=== PATIENT | male | born 1970 | race Two or more races ===

== ENCOUNTER 2017-09-06 13:12 | Emergency (ER) | payer SELFPAY ==
[2017-09-06 13:44] VITALS: BP 145/98
[2017-09-06] MEDS ORDERED: KETOROLAC TROMETH 60MG/2ML VIAL IM ONE (15:45)
== END 2017-09-06 16:27 | disposition home or self-care (01) ==
LOC: ER 13:12 → EDBD 13:12 → ER 16:27
DX: K40.90 Unilateral inguinal hernia, without obstruction or gangrene, not specified as recurrent (principal)
CPT/HCPCS: 74176; 96372; 99284; J1885

== ENCOUNTER 2022-04-11 10:54 | Emergency (ER) | payer MEDICAID, OTHER ==
[~2022-04-11] VITALS: Ht 170.2 cm; Wt 81.6 kg
[2022-04-11 11:24] LABS: Urine Bacteria NONE SEEN /hpf (None Seen); Urine Blood Negative /uL (Negative); Urine Specific Gravity 1.036 (1.001-1.035); Urine WBC <1 /hpf (0 - 3)
[2022-04-11 11:48] LABS: Basophils # (auto) 0.1 10 ^3/uL (0-0.2); Basophils % (auto) 1.2 % (0.0-2.0); Eosinophils # (auto) 0 10 ^3/uL (0-0.8); Eosinophils % (auto) 0.3 % (0.0-7.0); Hematocrit 42.9 % (41.0-53.0); Hemoglobin 15.1 g/dL (13.5-17.5); Lymphocytes # (auto) 2.9 10 ^3/uL (0.4-5.4); Lymphocytes % (auto) 27.5 % (10.0-50.0); Mean Corpuscular Hemoglobin 31.1 pg (28.0-32.0); Mean Corpuscular Hgb Conc. 35.3 g/dL (32.0-36.0); Mean Corpuscular Volume 87.9 fL (80.0-100.0); Monocytes % (auto) 9.9 % (0.0-12.0); Neutrophils # (auto) 6.4 10 ^3/uL (1.6-8.6); Neutrophils % (auto) 61.1 % (37.0-80.0); Red Blood Cells 4.87 10^6/uL (4.5-5.90); Red Cell Distribution Width 13.4 % (11.8-14.3); White Blood Cell 10.5 10^3/uL (4.4-10.8)
[2022-04-11 11:56] LABS: Albumin 4.2 g/dL (3.4-5.0); Calcium 8.8 mg/dL (8.5-10.1); Potassium 3.9 mmol/L (3.5-5.1)
[2022-04-11 12:02] LABS: Bilirubin, Total 1.2 mg/dL (0.2-1.0); Total Protein 7.9 g/dL (6.4-8.2)
[2022-04-11] MEDS ORDERED: MIDAZOLAM HCL 2MG/2ML 2ml VIAL (1mg/ml) IV ONE (12:45)
[2022-04-11] MEDS ORDERED: KETAMINE 50mg/ML 10ml Vial (500mg/10ml) IV ONE ×2 (12:45→12:50)
[2022-04-11] MEDS ORDERED: MORPHINE SULFATE 4 MG/ML SYR/VIAL IV ONE (12:45)
[2022-04-11] MEDS ORDERED: LACTATED RINGER'S 1,000 ML IV ONE (12:45)
[2022-04-11 13:33] LABS: INR 0.97 (0.9-1.15); Partial Thromboplastin Time 28.2 sec (23.6-33.0)
[2022-04-11 13:36] LABS: Lactic Acid w/Reflex 2.1 mmol/L (0.4-2.0)
[2022-04-11] MEDS ORDERED: DICL50TA2 PO (16:46)
[2022-04-11 17:03] VITALS: BP 119/72
== END 2022-04-11 17:22 | disposition home or self-care (01) ==
LOC: ER 10:54
DX: K46.9 Unspecified abdominal hernia without obstruction or gangrene (principal)
CPT/HCPCS: 36415; 80053; 81001; 83605; 85025; 85610; 85730; 96361; 96374; 99285; J2250

== ENCOUNTER 2023-02-03 07:54 | Day surgery (SDC) | payer MEDICAID ==
[2023-01-29 15:00] LABS: Urine WBC None Seen /hpf (0 - 3)
[2023-01-29 15:02] LABS: Basophils # (auto) 0.1 10 ^3/uL (0-0.2); Basophils % (auto) 0.7 % (0.0-2.0); Eosinophils # (auto) 0.2 10 ^3/uL (0-0.8); Eosinophils % (auto) 1.8 % (0.0-7.0); Hematocrit 45.3 % (41.0-53.0); Hemoglobin 15.8 g/dL (13.5-17.5); Lymphocytes # (auto) 3.2 10 ^3/uL (0.4-5.4); Lymphocytes % (auto) 34.2 % (10.0-50.0); Mean Corpuscular Hemoglobin 30.7 pg (28.0-32.0); Mean Corpuscular Hgb Conc. 34.8 g/dL (32.0-36.0); Mean Corpuscular Volume 88.2 fL (80.0-100.0); Monocytes # (auto) 1.1 10 ^3/uL (0-1.3); Monocytes % (auto) 11.7 % (0.0-12.0); Neutrophils # (auto) 4.8 10 ^3/uL (1.6-8.6); Neutrophils % (auto) 51.6 % (37.0-80.0); Nucleated Red Blood Cells % 0.1 %; Red Blood Cells 5.14 10^6/uL (4.5-5.90); Red Cell Distribution Width 13.2 % (11.8-14.3); White Blood Cell 9.3 10^3/uL (4.4-10.8)
[2023-01-29 15:08] LABS: Urine Bacteria NONE SEEN /hpf (None Seen); Urine Blood Negative /uL (Negative); Urine Specific Gravity 1.013 (1.001-1.035)
[2023-01-29 15:22] LABS: INR 0.92 (0.9-1.15); Partial Thromboplastin Time 27.9 sec (24.6-33.4)
[2023-01-29 15:30] LABS: Albumin 3.8 g/dL (3.4-5.0); Calcium 9.1 mg/dL (8.5-10.1); Potassium 3.9 mmol/L (3.5-5.1)
[2023-01-29 15:34] LABS: BUN/Creatinine Ratio 12.1 (10.0-20.0); Bilirubin, Total 1.1 mg/dL (0.2-1.0); Total Protein 7.9 g/dL (6.4-8.2)
[~2023-02-03] VITALS: Ht 182.9 cm; Wt 90.7 kg
[~2023-02-03 07:54] MED LIST: ALBU2TAB4 PO; ATOR40TA52 PO; BUPIVACAINE IMPLANT 3x100mg IL ONE; DICL50TA2 PO; LISI20TA28 PO; PANT40TA2 PO
[2023-02-03] MEDS ORDERED: MIDAZOLAM HCL 2MG/2ML 2ml VIAL (1mg/ml) ONE (08:03)
[2023-02-03] MEDS ORDERED: fentaNYL CITRATE 100 MCG/2 ML VL ONE (08:03)
[2023-02-03] MEDS ORDERED: PHENYLEPHRINE HCL 10 MG/ML VL ONE (08:04)
[2023-02-03] MEDS ORDERED: PROPOFOL 10 MG/ML 20 ML IV ONE (08:04)
[2023-02-03] MEDS ORDERED: GLYCOPYRROLATE 0.2 MG/ML 1ML VIAL ONE (08:04)
[2023-02-03] MEDS ORDERED: DexAMETHasone SOD PHOS 10MG/1ML VIAL INJ ONE (08:04)
[2023-02-03] MEDS ORDERED: LIDOCAINE 2% (LOCAL ANESTH.) PF 5ml SDV ONE (08:04)
[2023-02-03] MEDS ORDERED: ePHEDrine SULFATE 50 MG/ML AMP ONE (08:04)
[2023-02-03] MEDS ORDERED: ONDANSETRON HCL 4 MG/2 ML VIAL ONE (08:04)
[2023-02-03] MEDS ORDERED: KETOROLAC TROMETH 30 MG/ML 1ML VIAL ONE (08:04)
[2023-02-03] MEDS ORDERED: ceFAZolin 1GM/50ML 100 ML IV ONE (08:27)
[2023-02-03] MEDS ORDERED: LIDOCAINE W/ EPINEPHRINE 1% 20ML VIAL ONE (08:33)
[2023-02-03] MEDS ORDERED: FAMOTIDINE (10MG/ML) 2ML VL IV ONE (08:40)
[2023-02-03] MEDS ORDERED: ONDANSETRON HCL 4 MG/2 ML VIAL IV PRN (09:15)
[2023-02-03] MEDS ORDERED: HYDROmorphone HCL 2 MG/ML VL/or syr IV PRN (09:15)
[2023-02-03] MEDS ORDERED: HYDROmorphone HCL 2 MG/ML VL/or syr ONE (09:18)
[2023-02-03] MEDS ORDERED: BUPIVACAINE 0.25% INJ 50ML VIAL IJ ONE (09:52)
[2023-02-03 11:15] VITALS: BP 147/87
== END 2023-02-03 11:28 | disposition home or self-care (01) ==
LOC: SUR 07:54
PROVIDERS: ATTEND Surgery
DX: K40.90 Unilateral inguinal hernia, without obstruction or gangrene, not specified as recurrent (principal); J45.909 Unspecified asthma, uncomplicated; I10 Essential (primary) hypertension; E78.5 Hyperlipidemia, unspecified; K44.9 Diaphragmatic hernia without obstruction or gangrene; Z79.899 Other long term (current) drug therapy; Z79.51 Long term (current) use of inhaled steroids; Z20.822 Contact with and (suspected) exposure to COVID-19; Z79.1 Long term (current) use of non-steroidal anti-inflammatories (NSAID)
CPT/HCPCS: 36415; 49505; 80053; 81001; 85025; 85610; 85730; 86850; 86900; 86901; C1781; C9089; J0690; J1100; J1170; J1885; J2001; J2250; J2370; J2405; J2704; J3010; J3490; U0003

== ENCOUNTER 2023-10-26 09:40 | Emergency (ER) | payer MEDICAID ==
[~2023-10-26] VITALS: Ht 172.7 cm; Wt 86.3 kg
[~2023-10-26 09:40] MED LIST changes: +ALBU2TAB11 PO; -ALBU2TAB4 PO; -BUPIVACAINE IMPLANT 3x100mg IL ONE; -LISI20TA28 PO; +LISI20TA56 PO
[2023-10-26 13:02] VITALS: BP 145/98; PULSE 77; RESP 16; TEMP 97.4; O2SAT 98
[2023-10-26 14:04] LABS: Rapid Influenza A Negative (Negative); Rapid Influenza B Negative (Negative)
[2023-10-26 14:05] LABS: COVID19 ANTIGEN SOFIA FIA NEGATIVE (NEGATIVE)
[2023-10-26] MEDS ORDERED: ACET500T58 PO (14:11)
== END 2023-10-26 14:20 | disposition home or self-care (01) ==
LOC: ER 09:40
DX: J06.9 Acute upper respiratory infection, unspecified (principal); Z20.822 Contact with and (suspected) exposure to COVID-19
CPT/HCPCS: 36415; 71045; 87426; 87804

== ENCOUNTER 2024-07-20 07:11 | Inpatient (IN) | payer MEDICAID ==
[~2024-07-20] VITALS: Ht 170.2 cm; Wt 80.6 kg
[~2024-07-20 07:11] MED LIST changes: +ACET500T58 PO
[2024-07-20 07:41] VITALS: PULSE 77; RESP 18; O2SAT 95
[2024-07-20] MEDS ORDERED: ONDANSETRON HCL 4 MG/2 ML VIAL IV PRN ×2 (07:45→12:30)
[2024-07-20] MEDS: MECLIZINE HCL 25 MG TAB PO ONE (07:49)
[2024-07-20] MEDS: SODIUM CHLORIDE 0.9% 1,000 ML IV ONE (07:50)
[2024-07-20] MEDS: ONDANSETRON HCL 4 MG/2 ML VIAL ONE (07:53)
[2024-07-20 08:09] LABS: Basophils # (auto) 0 10 ^3/uL (0-0.2); Basophils % (auto) 0.3 % (0.0-2.0); Chloride 108 mmol/L (98-107); Eosinophils # (auto) 0.1 10 ^3/uL (0-0.8); Eosinophils % (auto) 0.7 % (0.0-7.0); Hematocrit 44.8 % (41.0-53.0); Hemoglobin 15.9 g/dL (13.5-17.5); Lymphocytes # (auto) 2.4 10 ^3/uL (0.4-5.4); Lymphocytes % (auto) 26.9 % (10.0-50.0); Mean Corpuscular Hemoglobin 31.6 pg (28.0-32.0); Mean Corpuscular Hgb Conc. 35.4 g/dL (32.0-36.0); Mean Corpuscular Volume 89.3 fL (80.0-100.0); Monocytes # (auto) 0.9 10 ^3/uL (0-1.3); Monocytes % (auto) 10.4 % (0.0-12.0); Neutrophils # (auto) 5.6 10 ^3/uL (1.6-8.6); Neutrophils % (auto) 61.7 % (37.0-80.0); Platelet Count (auto) 243 10^3/uL (140-450); Potassium 3.5 mmol/L (3.5-5.1); Red Blood Cells 5.02 10^6/uL (4.5-5.90); Red Cell Distribution Width 13.9 % (11.8-14.3); Sodium 140 mmol/L (136-145)
[2024-07-20 08:10] LABS: Anion Gap 9 (5-15); Calcium 9.6 mg/dL (8.7-10.4); Carbon Dioxide 23 mmol/L (20-30)
[2024-07-20 08:15] LABS: BUN/Creatinine Ratio 14.6 (10.0-20.0); Blood Urea Nitrogen 14 mg/dL (9-23); Glucose 141 mg/dL (74-106)
[2024-07-20 11:49] LABS: Urine Bacteria None Seen /hpf (None Seen)
[2024-07-20 12:08] LABS: Urine Blood Negative /uL (Negative); Urine Clarity Clear (Clear); Urine Color Colorless (Yellow); Urine Protein, UAD Negative (Negative); Urine Specific Gravity 1.007 (1.001-1.035); Urine Urobilinogen Normal (Negative); Urine WBC <1 /hpf (0 - 3); Urine pH 5.5 (5.0-9.0)
[2024-07-20] MEDS ORDERED: AMLO1TAB22 PO (12:26)
[2024-07-20] MEDS ORDERED: HYDROcodone-ACET 5/325MG TAB PO PRN (12:30)
[2024-07-20] MEDS ORDERED: NITROGLYCERIN 0.4 MG SL TAB SL PRN (12:30)
[2024-07-20] MEDS ORDERED: MORPHINE SULFATE INJ 2 MG/ml SYRG IV PRN (12:30)
[2024-07-20] MEDS ORDERED: DEXTROSE (50%) 50ML SYRG IV PRN (12:45)
[2024-07-20 13:27] LABS: Triglycerides 272 mg/dL (< 150)
[2024-07-20 13:28] LABS: LDL Cholesterol 84 mg/dL (< 100)
[2024-07-20 13:29] LABS: Cholesterol 156 mg/dL (< 200); HDL Cholesterol 36 mg/dL (40-59)
[2024-07-20 14:41] VITALS: BP 124/79; PULSE 68; RESP 16; TEMP 98.3; O2SAT 96
[2024-07-20] MEDS: ACCU-CHEK COMFORT CURVE STRIP VI SCH (16:41)
[2024-07-20] MEDS: InsuLIN REG 1unit/0.01ml Soln (100units/ml) SC SCH (16:42)
[2024-07-20] MEDS ORDERED: hydrALAZINE HCL 20 MG/ML VL IV PRN (16:45)
[2024-07-20 17:10] VITALS: BP 112/72; PULSE 61; RESP 18; TEMP 98.2; O2SAT 99
[2024-07-20] MEDS: ASPirin 325 MG TAB PO ONE (18:52)
[2024-07-20] MEDS: ACETAMINOPHEN 325 MG TAB PO PRN (18:52)
[2024-07-20] MEDS: SODIUM CHLORIDE 0.9% 1,000 ML IV SCH (18:52)
[2024-07-20 20:00] VITALS: PULSE 63; RESP 18; O2SAT 96
[2024-07-20 21:00] VITALS: BP 110/66; PULSE 60; RESP 18; TEMP 97.9; O2SAT 94
[2024-07-20] MEDS: ATORVASTATIN 20 MG TAB PO SCH (21:03)
[2024-07-21] VITALS (13 sets, daily range): BP systolic 106–128; BP diastolic 71–86; PULSE 54–75; RESP 10–20; TEMP 97.4–98.1; O2SAT 94–96
[2024-07-21] MEDS ORDERED: amLODIPine BESYLATE 5 MG TAB PO SCH (07:00)
[2024-07-21 07:04] LABS: Alanine Aminotransferase 45 U/L (7-40); Albumin 3.8 g/dL (3.2-4.8); Alkaline Phosphatase 113 U/L (46-116); Anion Gap 6 (5-15); Aspartate Aminotransferase 30 U/L (13-40); Bilirubin, Total 2.1 mg/dL (0.2-1.0); Blood Urea Nitrogen 12 mg/dL (9-23); Calcium 8.9 mg/dL (8.7-10.4); Carbon Dioxide 25 mmol/L (20-30); Chloride 110 mmol/L (98-107); Glucose 105 mg/dL (74-106); Potassium 3.9 mmol/L (3.5-5.1); Sodium 141 mmol/L (136-145); Total Protein 6.3 g/dL (5.7-8.2)
[2024-07-21 07:25] LABS: INR 1.01 (0.9-1.15); Partial Thromboplastin Time 27.3 SEC (24.5-34.5); Prothrombin Time 10.7 sec (9.3-11.8)
[2024-07-21] MEDS: IODIXANOL 320MG/ML 100ML BTL IV ONE ×3 (07:35→09:22)
[2024-07-21 07:40] LABS: Basophils # (auto) 0 10 ^3/uL (0-0.2); Basophils % (auto) 0.3 % (0.0-2.0); Eosinophils # (auto) 0.1 10 ^3/uL (0-0.8); Eosinophils % (auto) 0.9 % (0.0-7.0); Hematocrit 41.7 % (41.0-53.0); Hemoglobin 14.8 g/dL (13.5-17.5); Lymphocytes # (auto) 2.1 10 ^3/uL (0.4-5.4); Lymphocytes % (auto) 27.3 % (10.0-50.0); Mean Corpuscular Hemoglobin 31.9 pg (28.0-32.0); Mean Corpuscular Hgb Conc. 35.5 g/dL (32.0-36.0); Mean Corpuscular Volume 89.8 fL (80.0-100.0); Monocytes % (auto) 12.8 % (0.0-12.0); Neutrophils # (auto) 4.5 10 ^3/uL (1.6-8.6); Neutrophils % (auto) 58.7 % (37.0-80.0); Nucleated Red Blood Cells % 0.3 %; Platelet Count (auto) 200 10^3/uL (140-450); Red Blood Cells 4.64 10^6/uL (4.5-5.90); Red Cell Distribution Width 13.6 % (11.8-14.3); White Blood Cell 7.6 10^3/uL (4.4-10.8)
[2024-07-21] MEDS: ANGIOMAX 250 MG VIAL IV ONE (08:49)
[2024-07-21] MEDS: SODIUM CHL 0.9% 0 ML ONE (08:50)
[2024-07-21] MEDS: HEPARIN SODIUM (PORCINE) 5000 UNITS/ML 1ML VIAL ONE (08:50)
[2024-07-21] MEDS: LIDOCAINE 2%HCL (LOCAL ANESTH.) INJ 20ML MDV ONE (08:50)
[2024-07-21] MEDS: MIDAZOLAM HCL 2MG/2ML 2ml VIAL (1mg/ml) ONE (08:50)
[2024-07-21] MEDS: fentaNYL CITRATE 100 MCG/2 ML VL ONE (08:50)
[2024-07-21] MEDS: VERAPAMIL 2.5MG/ML INJ 2ML VIAL IV ONE (08:50)
[2024-07-21] MEDS: PANTOPRAZOLE 40 MG TAB PO SCH (10:00)
[2024-07-21] MEDS ORDERED: ATORVASTATIN 20 MG TAB PO SCH (10:00)
[2024-07-21] MEDS: ASPirin 81 mg TAB PO SCH (10:00)
[2024-07-21] MEDS: LISINOPRIL 20 MG TAB PO SCH (10:00)
[2024-07-21] MEDS ORDERED: FAMO40TA7 PO (15:44)
[2024-07-21] MEDS ORDERED: OMEP1CAP70 PO (15:44)
[2024-07-21] MEDS ORDERED: ALBU108A5 IN (15:44)
[2024-07-21] MEDS ORDERED: ACET-6 PO (15:44)
[2024-07-21] MEDS ORDERED: FLUT220A6 IN (15:45)
[2024-07-22] VITALS (7 sets, daily range): BP systolic 97–111; BP diastolic 64–71; PULSE 55–62; RESP 18–20; TEMP 36.6; O2SAT 93–96
[2024-07-22 06:25] LABS: Alanine Aminotransferase 46 U/L (7-40); Albumin 3.9 g/dL (3.2-4.8); Alkaline Phosphatase 121 U/L (46-116); Anion Gap 4 (5-15); Aspartate Aminotransferase 28 U/L (13-40); BUN/Creatinine Ratio 12.1 (10.0-20.0); Blood Urea Nitrogen 12 mg/dL (9-23); Carbon Dioxide 26 mmol/L (20-30); Chloride 108 mmol/L (98-107); Glucose 99 mg/dL (74-106); Sodium 138 mmol/L (136-145)
[2024-07-22 06:26] LABS: Bilirubin, Total 2.4 mg/dL (0.2-1.0); Total Protein 6.6 g/dL (5.7-8.2)
[2024-07-22] MEDS ORDERED: ASPI-325 PO (11:51)
== END 2024-07-22 14:45 | disposition home or self-care (01) | DRG 243 ==
LOC: ER 07:11 → TELE 12:21 → TELE-E-ADS 14:27
PROVIDERS: ADMIT Registered Nurse General Practice; ATTEND Family Medicine
PROC: B211YZZ Fluoroscopy of Multiple Coronary Arteries using Other Contrast (ICD-10-PCS; principal; 2024-07-21)
PROC: 4A023N7 Measurement of Cardiac Sampling and Pressure, Left Heart, Percutaneous Approach (ICD-10-PCS; 2024-07-21)
PROC: B215YZZ Fluoroscopy of Left Heart using Other Contrast (ICD-10-PCS; 2024-07-21)
DX: K21.9 Gastro-esophageal reflux disease without esophagitis (principal); E78.1 Pure hyperglyceridemia; E78.5 Hyperlipidemia, unspecified; R73.9 Hyperglycemia, unspecified; I10 Essential (primary) hypertension; J45.909 Unspecified asthma, uncomplicated; R32 Unspecified urinary incontinence; R73.03 Prediabetes; Z79.1 Long term (current) use of non-steroidal anti-inflammatories (NSAID); Z79.899 Other long term (current) drug therapy; Z82.49 Family history of ischemic heart disease and other diseases of the circulatory system
CPT/HCPCS: 36415; 70450; 71045; 80048; 80053; 80061; 81001; 82962; 83036; 83735; 83880; 84443; 84484; 85025; 85610; 85730; 86850; 86900; 86901; 93005; 93306; 93458; 99152; 99291; G0378; J2250; J2405; Q9967

== ENCOUNTER 2024-08-20 14:18 | Emergency (ER) | payer MEDICAID ==
[~2024-08-20] VITALS: Ht 167.6 cm; Wt 90.3 kg
[~2024-08-20 14:18] MED LIST changes: -ACET500T58 PO; +ALBU108A5 IN; -ALBU2TAB11 PO; +AMLO1TAB22 PO; +ASPI-325 PO; -DICL50TA2 PO; +FAMO40TA7 PO; +FLUT220A6 IN; +OMEP1CAP70 PO; -PANT40TA2 PO
[2024-08-20] MEDS: DexAMETHasone SOD PHOS 10MG/1ML VIAL INJ IM ONE (15:19)
[2024-08-20 15:20] VITALS: PULSE 96; RESP 18; O2SAT 95
[2024-08-20 15:59] LABS: Urine Bacteria None Seen /hpf (None Seen)
[2024-08-20] MEDS: IPRATROPIUM BROM 0.5 MG/2.5ML INH SOL NEB ONE (16:11)
[2024-08-20] MEDS: ALBUTEROL SULF 2.5 MG/0.5ML(0.5%) NEB SOLN NEB ONE (16:11)
[2024-08-20 16:14] LABS: Urine Blood Negative /uL (Negative); Urine Clarity Clear (Clear); Urine Color Light-Yellow (Yellow); Urine Protein, UAD Negative (Negative); Urine Specific Gravity 1.023 (1.001-1.035); Urine Urobilinogen Normal (Negative); Urine WBC 1 /hpf (0 - 3)
[2024-08-20] MEDS ORDERED: DIPH25CA66 PO (16:58)
[2024-08-20] MEDS ORDERED: HYDR-3682 PO (16:58)
[2024-08-20] MEDS ORDERED: LORA-622 PO (16:58)
[2024-08-20 17:27] VITALS: BP 145/80; PULSE 88; RESP 20; TEMP 99; O2SAT 95
== END 2024-08-20 17:28 | disposition home or self-care (01) ==
LOC: ER 14:20
DX: T78.49XA Other allergy, initial encounter (principal); R21 Rash and other nonspecific skin eruption; I10 Essential (primary) hypertension; J45.909 Unspecified asthma, uncomplicated; Z98.890 Other specified postprocedural states; Z79.899 Other long term (current) drug therapy; Z79.82 Long term (current) use of aspirin; X58.XXXA Exposure to other specified factors, initial encounter
CPT/HCPCS: 81001; 94640; 96372; 99283; J1100

== ENCOUNTER 2025-09-23 05:37 | Inpatient (IN) | payer MEDICAID ==
[~2025-09-23] VITALS: Ht 170.2 cm; Wt 87.7 kg
[~2025-09-23 05:37] MED LIST changes: +DIPH25CA66 PO; +HYDR-3682 PO; +LORA-622 PO
[2025-09-23 06:10] LABS: Hematocrit 44.1 % (41.0-53.0); Hemoglobin 16.0 g/dL (13.5-17.5); Mean Corpuscular Hemoglobin 31.4 pg (28.0-32.0); Mean Corpuscular Volume 86.8 fL (80.0-100.0); Nucleated Red Blood Cells % 0.1 %
[2025-09-23 06:21] LABS: Chloride 105 mmol/L (98-107); Potassium 4.1 mmol/L (3.5-5.1); Sodium 143 mmol/L (136-145)
[2025-09-23 06:22] LABS: Anion Gap 11 (5-15); Carbon Dioxide 27 mmol/L (20-31)
[2025-09-23 06:23] LABS: Calcium 9.7 mg/dL (8.7-10.4)
--- NOTE | 2025-09-23 06:27 | DVH ---
CHEST RADIOGRAPH Indication: chest pain Technique: Single frontal view of the chest was obtained Comparison: XY CHEST PORTABLE on DOS: 07/20/24, XY CHEST XRAY 1 VIEW on DOS: 10/26/23 IMPRESSION: Heart appears normal in size. The lungs appear clear without focal airspace opacity, effusion, or pneumothorax
[2025-09-23 06:28] LABS: BUN/Creatinine Ratio 17.4 (10.0-20.0); Blood Urea Nitrogen 15 mg/dL (9-23)
[2025-09-23 06:36] LABS: Glucose 112 mg/dL (74-106)
--- NOTE | 2025-09-23 07:17 | ED.PDOC ---
HPI Comments 55 y/o M, with PMHx of asthma, HTN, and GERD presents to the ED for CC of chest pain. Patient states, he has been experiencing chest pain [id number] with associated headaches and abdominal pain. Patient reports, to have had recent hypertensive blood pressure readings; patient's blood pressure in ED triage read at 138/90mmHg. Patient denies shortness of breath, palpitations, extremity swelling, dizziness, weakness, or numbness. No other symptoms or modifying factors are present at this time. Chief Complaint: Chest Pain Time Seen by MD: 07:10 Primary Care Provider: JOVANI Reviewed Notes: Nurses Notes, Medications, Allergies Allergies: Coded Allergies: NO KNOWN ALLERGIES (Unverified , 01/29/23) Home Meds Active Scripts Hydroxyzine Hcl (Hydroxyzine Hcl) 25 Mg Tab, 1 TAB PO TID, #20 TAB Prov:ALISHA SCHAEFER PAC 08/20/24 Diphenhydramine Hcl (Benadryl Allergy) 25 Mg Cap, 1 CAP PO Q8HP PRN, #20 CAP 0 Refills Prov:ALISHA SCHAEFER PAC 08/20/24 Loratadine (Claritin) 10 Mg Tab, 1 TAB PO DAILY, #30 TAB 0 Refills Prov:ALISHA SCHAEFER PAC 08/20/24 Aspirin (Aspirin Low Dose) 81 Mg Tab, 81 MG PO DAILY for 90 Days, #90 TAB Prov:WILMER MONTIEL MD 07/22/24 Reported Medications Fluticasone Propionate (Fluticasone Propionate Hf) 220 Mcg/Act Aer, 2 PUFF IN BID, AER 07/21/24 Famotidine (Famotidine) 40 Mg Tab, 40 MG PO BIDAC, TAB 07/21/24 Omeprazole (Omeprazole Dr) 20 Mg Cap, 20 MG PO DAILY, CAP 07/21/24 Albuterol Sulfate (Albuterol Sulfate Hfa) 108 Mcg/Act Aer, 108 MCG IN Q6HP PRN for SHORTNESS OF BREATH, AER 07/21/24 Amlodipine Besylate (Amlodipine Besylate) 5 Mg Tab, 1 TAB PO QAM 07/20/24 Atorvastatin Calcium (ATORVASTATIN CALCIUM) 40 Mg Tab, 1 TAB PO DAILY, #30 TAB 5 Refills 01/29/23 Lisinopril (Lisinopril) 20 Mg Tab, 20 MG PO BID for 30 Days, MG 01/29/23 Information Source: Patient Mode of Arrival: Ambulatory Severity: Moderate Timing: Weeks Duration: Since onset Prehospital treatment: None Onset: At Rest Cardiac Risk Factors: HTN PE Risk Factors: None History of: None Modifying Factors: Nothing Associated Signs and Symptoms: Abdominal Pain Past Medical History PAST MEDICAL HISTORY: Asthma, GERD, HTN Surgical History: Hernia Repair Family History Family History: Reviewed,noncontributory to illness Social History Smoker: Non-Smoker Alcohol: Denies ETOH Use Drugs: Denies Drug Use Lives In: Home Constitutional: denies: chills, diaphoresis, fatigue, fever, malaise, sweats, weakness, others EENTM: denies: blurred vision, double vision, ear bleeding, ear discharge, ear drainage, ear pain, ear ringing, eye pain, eye redness, hearing loss, mouth pain, mouth swelling, nasal discharge, nose bleeding, nose congestion, nose pain, photophobia, tearing, throat pain, throat swelling, voice changes, others Respiratory: denies: cough, hemoptysis, orthopnea, SOB at rest, shortness of breath, SOB with excertion, stridor, wheezing, others Cardiovascular: reports: chest pain; denies: dizzy spells, diaphoresis, Dyspnea on exertion, edema, irregular heart beat, left arm pain, lightheadedness, palpitations, PND, syncope, others Gastrointestinal: reports: abdominal pain; denies: abdomen distended, blood streaked bowels, constipated, diarrhea, dysphagia, difficulty swallowing, hematemesis, melena, nausea, poor appetite, poor fluid intake, rectal bleeding, rectal pain, vomiting, others Genitourinary: denies: burning, dysuria, flank pain, frequency, hematuria, incontinence, penile discharge, penile sore, pain, testicle pain, testicle swelling, urgency, others Neurological: reports: headache; denies: dizziness, fainting, left sided numbness, left sided weakness, numbness, paresthesia, pre-existing deficit, right sided numbness, right sided weakness, seizure, speech problems, tingling, tremors, weakness, others Musculoskeletal: denies: back pain, gout, joint pain, joint swelling, muscle pain, muscle stiffness, neck pain, others Integumetry: denies: bruises, change in color, change in hair/nails, dryness, laceration, lesions, lumps, rash, wounds, others Allergic/Immunocompromised: denies: Difficulty Healing, Frequent Infections, Hives, Itching, others Hematologic/Lymphatic: denies: anemia, blood clots, easy bleeding, easy bruising, swollen glands, others Endocrine: denies: excessive hunger, excessive sweating, excessive thirst, excessive urination, flushing, intolerance to cold, intolerance to heat, unexplained weight gain, unexplained weight loss, others Psychiatric: denies: anxiety, bipolar disorder, depression, hopeless, panic di sorder, schizophrenia, sleepless, suicidal, others All Other Systems: Reviewed and Negative Physical Exam General Appearance: No Apparent Distress, Normal HEENT: Normal ENT Inspection, Pharynx Normal, TMs Normal Neck: Full Range of Motion, Non-Tender, Normal, Normal Inspection Respiratory: Chest Non-Tender, Lungs Clear, No Accessory Muscle Use, No Respiratory Distress, Normal Breath Sounds Cardiovascular: No Edema, No JVD, No Murmur, No Gallop, Normal Peripheral Pulses, Regular Rate/Rhythm Breast Exam: Deferred Gastrointestinal: No Organomegaly, Non Tender, No Pulsatile Mass, Normal Bowel Sounds, Soft Genitalia: Deferred Pelvic: Deferred Rectal: Deferred Extremities: No calf tenderness, Normal capillary refill, Normal inspection, Normal range of motion, Non-tender, No pedal edema Musculoskeletal : Apperance: Normal Neurologic: Alert, chief of production II-XII nml as Tested, No Motor Deficits, Normal Affect, Normal Mood, No Sensory Deficits Cerebellar Function: Normal Reflexes: Normal Skin: Dry, Normal Color, Warm Lymphatic: No Adenopathy Was a procedure done? Was a procedure done?: No CP Differential Dx Differential Diagnosis: Other Differential Diagnosis: HTN Essential, HTN Accelerated Differential Diagnosis: Angina, Aortic dissection, Chest Wall Pain, Costoch ondritis, Esophageal reflux/spasm, Gastritis, Myocardial Infarction, Pericarditis, Pneumonia, Pneumothorax, Pulmonary Embolus X-Ray, Labs, Meds, VS Vital Signs Date Time Temp Pulse Resp B/P (MAP) Pulse Ox O2 Delivery O2 Flow Rate FiO2 09/23/25 08:49 48 09/23/25 08:12 Room Air* 0 21 09/23/25 07:44 59 09/23/25 07:39 114/77 09/23/25 07:30 60 16 114/ (89) 99 09/23/25 05:49 61 09/23/25 05:39 97.8 65 18 138/90 98 97.8 Lab Test 09/23/25 08:03 09/23/25 07:30 09/23/25 06:08 09/23/25 05:54 Range/Units Troponin I High Sensitivity < 3 L < 3 L < 3 L </=54 ng/L White Blood Count 6.3 6.6 4.4-10.8 10^3/uL Red Blood Count 5.16 5.08 4.5-5.90 10^6/uL Hemoglobin 16.0 16.0 13.5-17.5 g/dL Hematocrit 45.2 44.1 41.0-53.0 % Mean Corpuscular Volume 87.7 86.8 80.0-100.0 fL Mean Corpuscular Hemoglobin 31.0 31.4 28.0-32.0 pg Mean Corpuscular Hemoglobin Concent 35.3 36.2 H 32.0-36.0 g/dL Red Cell Distribution Width 13.7 13.6 11.8-14.3 % Platelet Count 237 244 140-450 10^3/uL Mean Platelet Volume 7.3 7.1 6.9-10.8 fL Neutrophils (%) (Auto) 54.4 45.6 37.0-80.0 % Lymphocytes (%) (Auto) 32.5 40.5 10.0-50.0 % Monocytes (%) (Auto) 12.2 H 12.7 H 0.0-12.0 % Eosinophils (%) (Auto) 0.5 1.0 0.0-7.0 % Basophils (%) (Auto) 0.4 0.2 0.0-2.0 % Neutrophils # (Auto) 3.4 3.0 1.6-8.6 10 ^3/uL Lymphocytes # (Auto) 2.0 2.7 0.4-5.4 10 ^3/uL Monocytes # (Auto) 0.8 0.8 0-1.3 10 ^3/uL Eosinophils # (Auto) 0 0.1 0-0.8 10 ^3/uL Basophils # (Auto) 0 0 0-0.2 10 ^3/uL Nucleated Red Blood Cells 0.0 0.1 % Sodium Level 143 143 136-145 mmol/L Potassium Level 3.9 4.1 3.5-5.1 mmol/L Chloride Level 106 105 98-107 mmol/L Carbon Dioxide Level 27 27 20-31 mmol/L Anion Gap 10 11 5-15 Blood Urea Nitrogen 14 15 9-23 mg/dL Creatinine 0.86 0.86 0.700-1.30 mg/dL Glomerular Filtration Rate Calc 103 103 >90 mL/min BUN/Creatinine Ratio 16.3 17.4 10.0-20.0 Serum Glucose 108 H 112 H 74-106 mg/dL Calcium Level 9.7 9.7 8.7-10.4 mg/dL Current Medications Medications (Trade) Dose Ordered Sig/Brigitte Route Start Time Stop Time Status Last Admin Aspirin 162 mg ONCE ONCE PO 09/23/25 07:30 09/23/25 07:31 DC 09/23/25 07:39 Nitroglycerin (Ntrostat Sublingual) 0.4 mg ONCE ONCE SL 09/23/25 07:30 09/23/25 07:31 DC 09/23/25 07:39 [place] [address] Ph: [phone] DIAGNOSTIC IMAGING Diagnostic Imaging Report : [id number] Signed PATIENT: MINDI FIELD ACCT: [id number] UNIT: [id number] : 1970 LOC: ER ROOM / BED: / AGE / SEX: 55 / M ADM STATUS: REG ER SERVICE 0544 ORDERING PHYSICIAN: ER PROCEDURE(s): CXRP - CHEST PORTABLE REASON: chest pain ORDER NUMBER(s): [id number], ACCESSION NUMBER(s): [id number] CHEST RADIOGRAPH Indication: chest pain Technique: Single frontal view of the chest was obtained Comparison: XY CHEST PORTABLE on DOS: 07/20/24, XY CHEST XRAY 1 VIEW on DOS: 10/26/23 IMPRESSION: Heart appears normal in size. The lungs appear clear without focal airspace opacity, effusion, or pneumothorax ATED BY: JOHN MCFARLAND MD DICTATED DATE/TIME: 09/23/25625 SIGNED BY: JOHN MCFARLAND MD SIGNED DATE/TIME: 09/23/25625 CC: Time of 1ST Reevaluation: 07:40 Reevaluation 1ST: Unchanged Patient Education/Counseling: Diagnosis, Treatment Family Education/Counseling: No Family Present Comments This is a patient with a heart score of four. Who presents to the emergency room complain about worsening of chest pain. States that for the past three d ays he has been having intermittent daily chest pain which is nonreproducible. Last July he was seen in the admitted for the same pain had an angiogram which did not show any significant stenosis but he did have what was described as sluggish flow in all three coronary arteries. Patient was recommended to be on maximum medication treatments including beta-arlen. However there is no beta blockade on his medication list at this time. However he is bradycardic. Patient will be admitted for further evaluation for unstable angina and bradycardia. Additional Information The following tests were ordered, and results were reviewed by me: CBC, BMP, TROPONIN X3, CXY X2 I reviewed and agreed with the following test results read by other providers: CXY X2 I discussed treatment and results with medical personnel and: patient Comprehensive systems review obtained and negative except for what is stated in the HPI. SEPSIS Sepsis Screen Date sepsis recognized/suspect: Sep 23, 2025 Time Sepsis recognized/suspect: 0541 Recent Procedure: No On Antibiotic Therapy: No Respiratory Rate >20: No Heart Rate >90: No Temp<36 C (96.8 F) or >38.3 C: No SBP <90 or MAP <65 mmHG: No New Acute Mental Status Change: No Is the patient on CPAP, BIPAP,: No Physician Orders Chest Portable (09/23/25 05:44) Electrocardigram (09/23/25 08:44) Chest Xray 1 View (09/23/25 07:27) Vital Signs Date Time Temp Pulse Resp B/P (MAP) Pulse Ox O2 Delivery O2 Flow Rate FiO2 09/23/25 08:49 48 09/23/25 08:12 Room Air* 0 21 09/23/25 07:44 59 09/23/25 07:39 114/77 09/23/25 07:30 60 16 114/77 (89) 99 09/23/25 05:49 61 09/23/25 05:39 97.8 65 18 138/90 98 97.8 Laboratory Tests Test 09/23/25 05:54 09/23/25 07:30 White Blood Count 6.6 10^3/uL (4.4-10.8) 6.3 10^3/uL (4.4-10.8) Medications Medications Dose Ordered Sig/Brigitte Route Start Time Stop Time Status Last Admin Dose Admin Aspirin 162 mg ONCE ONCE PO 09/23/25 07:30 09/23/25 07:31 DC 09/23/25 07:39 Nitroglycerin 0.4 mg ONCE ONCE SL 09/23/25 07:30 09/23/25 07:31 DC 09/23/25 07:39 Departure 1 Departure Time of Disposition: 08:58 Impression: Primary Impression: Unstable angina Additional Impression: Bradycardia Disposition: ADMITTED INPATIENT Admit to: Tele Condition: Stable Critical Care Note Critical Care Time?: Yes (55 min-critical care time only) Critical care comment: Total critical care time: Approximately 55 minutes Due to a high probability of clinically significant, life threatening deterioration, the patient required my highest level of preparedness to intervene emergently and I personally spent this critical care time directly and personally managing the patient. This critical care time included obtaining a history; examining the patient; pulse oximetry; ordering and review of studies; arranging urgent treatment with development of a management plan; evaluation of patient's response to treatment; frequent reassessment; and, discussions with other providers. This critical care time was performed to assess and manage the high probability of imminent, life-threatening deterioration that could result in multi-organ failure. It was exclusive of separately billable procedures and treating other patients. Stability Stability form required: No Heart Score Heart Score: Heart Score Response (Comments) Value History N/A 0 EKG N/A 0 Age N/A 0 Risk Factors N/A 0 Troponin N/A 0 Total 0 I personally scribed for JORDYN FISH MD ([employer]) on 09/23/25 at 07:17. Electronically submitted by Dariela Crawford ([email or web address]). I personally scribed for JORDYN FISH MD ([employer]) on 09/23/25 at 07:20. Electronically submitted by Dariela Crawford ([email or web address]). I personally scribed for JORDYN FISH MD ([employer]) on 09/23/25 at 07:22. Electronically submitted by Dariela Crawford ([employer]). I personally scribed for JORDYN FISH MD ([facility]) on 09/23/25 at 07:29. Electronically submitted by Dariela Crawford ([email or web address]). I personally scribed for JORDYN FISH MD ([facility] on 09/23/25 at 07:33. Electronically submitted by Dariela Crawford ([email or web address]). JORDYN FISH MD Sep 23, 2025 07:17
[2025-09-23] MEDS: NITROGLYCERIN 0.4 MG SL TAB SL ONE ×2 (07:39→17:41)
--- NOTE | 2025-09-23 07:48 | ECG ---
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
[2025-09-23 08:12] LABS: Hematocrit 45.2 % (41.0-53.0); Hemoglobin 16.0 g/dL (13.5-17.5); Mean Corpuscular Hemoglobin 31.0 pg (28.0-32.0); Mean Corpuscular Volume 87.7 fL (80.0-100.0); Nucleated Red Blood Cells % 0.0 %
--- NOTE | 2025-09-23 08:20 | DVH ---
CHEST RADIOGRAPH Indication: cp Technique: Single frontal view of the chest was obtained COMPARISON: XY CHEST PORTABLE on DOS: 09/23/25, XY CHEST PORTABLE on DOS: 07/20/24, XY CHEST XRAY 1 VIEW on DOS: 10/26/23, XY CHEST TWO VIEWS ROUTINE on DOS: 01/29/23 FINDINGS: Lines and Tubes: None Lungs: Increased interstitial prominence. This may represent pulmonary vascular congestion and/or viral pneumonia. Pleura: No effusion. No pneumothorax. Cardiomediastinal contours: Unremarkable Bones: Unremarkable IMPRESSION: Increased interstitial prominence. This may represent pulmonary vascular congestion and/or viral pneumonia.
[2025-09-23 08:23] LABS: Chloride 106 mmol/L (98-107); Potassium 3.9 mmol/L (3.5-5.1); Sodium 143 mmol/L (136-145)
[2025-09-23 08:24] LABS: Anion Gap 10 (5-15); Calcium 9.7 mg/dL (8.7-10.4); Carbon Dioxide 27 mmol/L (20-31)
[2025-09-23 08:29] LABS: BUN/Creatinine Ratio 16.3 (10.0-20.0); Blood Urea Nitrogen 14 mg/dL (9-23)
[2025-09-23 08:31] LABS: Glucose 108 mg/dL (74-106)
--- NOTE | 2025-09-23 08:51 | ECG ---
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
[2025-09-23] MEDS ORDERED: NITROGLYCERIN 0.4 MG SL TAB SL PRN (10:30)
[2025-09-23] MEDS ORDERED: MORPHINE SULFATE INJ 2 MG/ml SYRG IV PRN (10:30)
--- NOTE | 2025-09-23 10:59 | DVHHPRES ---
History of Present Illness Resident Creating Document: MANUEL CHURCH RESIDENT History of Present Illness Patient is a 54 year old male with a medical history of hypertension, hyperlipidemia, prediabetes, GERD presented to the ED with a chief complaint of chest pain for 3 weeks. The patient complains of chest pain localized to the left inframammary area, nonradiating, pressure-like, non provoked, does not worsen with exertion, relieved on taking nitroglycerin and associated with dizziness. He denied any shortness of breath or palpitations or sweating associated with the pain. The pain has been coming and going Initial EKG in the ED showed sinus rhythm with a follow up ECG showing sinus bradycardia. He reportedly went to see his PCP recently we are also he was seen to be bradycardic and he recommended cardiology workup. He denied tobacco use, or any other drug use. Serial troponin levels has been negative. Reports a significant familial history for cardiovascular disease including his mother undergoing a double vessel CABG in her 70s and uncle (mother) from a massive myocardial infarction in his 50s. Patient complained of similar chest pain about a year ago in July 2024 when he underwent left heart catheterization which did not show any significant atherosclerotic plaque, sluggish flow involving all 3 coronary arteries was noted and was recommended medical therapy with high-dose statin and beta arlen. Medical history: As per HPI Surgical history: Denies Home medications: Lisinopril 20 mg daily, aspirin 81 mg daily, atorvastatin 40 mg Social history: Patient denies smoking alcohol drug use Review of Systems Review of Systems Reports of intermittent left inframammary chest pain currently 3/10 and when came to the hospital was 7 to 8/10, improved on nitroglycerin and aspirin Denies any shortness of breath, palpitations, fever, chills, nausea or vomiting Allergies: Coded Allergies: NO KNOWN ALLERGIES (Unverified , 01/29/23) Medications Current Medications Medications Dose Ordered Sig/Brigitte Route Start Time Stop Time Status Last Admin Dose Admin Morphine Sulfate 2 mg Q30M PRN IV 09/23/25 10:30 UNV Nitroglycerin 0.4 mg Q5MINP PRN SL 09/23/25 10:30 UNV Aspirin 81 mg DAILY PO 09/24/25 10:00 UNV Atorvastatin Calcium 40 mg HS PO 09/23/25 22:00 UNV Lisinopril 20 mg DAILY PO 09/24/25 10:00 UNV Exam Vital Signs Vital Signs Date Time Temp Pulse Resp B/P (MAP) Pulse Ox O2 Delivery O2 Flow Rate FiO2 09/23/25 09:37 98.0 53 17 119/85 (96) 99 98.0 09/23/25 08:12 Room Air* 0 21 Exam Gen - no pallor, no icterus, no edema . Skin - Patients skin is warm and dry. HEENT - normocephalic, atraumatic, moist mucous membranes. Neck - full ROM, no LAD, no JVD Pulmonary - B/L equal breath sounds, no crackles, no wheezing, no stridor. cardiovascular - regular S1,S2 heard, no added sounds, no murmurs heard. GI - soft, nontender abdomen. no hepatospleenomegaly. Bowel sounds normoactive Neurological - Patient is A/O X 4. Bilateral upper extremity strength 5/5, bilateral lower extremity strength 5/5, no facial droop, normal speech, no tremor, no sensory deficiets. Labs/Xrays Labs Test 09/23/25 08:03 09/23/25 07:30 Range/Units Troponin I High Sensitivity < 3 L </=54 ng/L White Blood Count 6.3 4.4-10.8 10^3/uL Red Blood Count 5.16 4.5-5.90 10^6/uL Hemoglobin 16.0 13.5-17.5 g/dL Hematocrit 45.2 41.0-53.0 % Mean Corpuscular Volume 87.7 80.0-100.0 fL Mean Corpuscular Hemoglobin 31.0 28.0-32.0 pg Mean Corpuscular Hemoglobin Concent 35.3 32.0-36.0 g/dL Red Cell Distribution Width 13.7 11.8-14.3 % Platelet Count 237 140-450 10^3/uL Mean Platelet Volume 7.3 6.9-10.8 fL Neutrophils (%) (Auto) 54.4 37.0-80.0 % Lymphocytes (%) (Auto) 32.5 10.0-50.0 % Monocytes (%) (Auto) 12.2 H 0.0-12.0 % Eosinophils (%) (Auto) 0.5 0.0-7.0 % Basophils (%) (Auto) 0.4 0.0-2.0 % Neutrophils # (Auto) 3.4 1.6-8.6 10 ^3/uL Lymphocytes # (Auto) 2.0 0.4-5.4 10 ^3/uL Monocytes # (Auto) 0.8 0-1.3 10 ^3/uL Eosinophils # (Auto) 0 0-0.8 10 ^3/uL Basophils # (Auto) 0 0-0.2 10 ^3/uL Nucleated Red Blood Cells 0.0 % Sodium Level 143 136-145 mmol/L Potassium Level 3.9 3.5-5.1 mmol/L Chloride Level 106 98-107 mmol/L Carbon Dioxide Level 27 20-31 mmol/L Anion Gap 10 5-15 Blood Urea Nitrogen 14 9-23 mg/dL Creatinine 0.86 0.700-1.30 mg/dL Glomerular Filtration Rate Calc 103 >90 mL/min BUN/Creatinine Ratio 16.3 10.0-20.0 Serum Glucose 108 H 74-106 mg/dL Calcium Level 9.7 8.7-10.4 mg/dL SEPSIS Sepsis Screen Date sepsis recognized/suspect: Sep 23, 2025 Time Sepsis recognized/suspect: 05 Recent Procedure: No On Antibiotic Therapy: No Respiratory Rate >20: No Heart Rate >90: No Temp<36 C (96.8 F) or >38.3 C: No SBP <90 or MAP <65 mmHG: No New Acute Mental Status Change: No Is the patient on CPAP, BIPAP,: No Physician Orders Chest Portable (09/23/25 05:44) Electrocardigram (09/23/25 08:44) Chest Xray 1 View (09/23/25 07:27) Admit (09/23/25 10:22) Morphine Sulfate Injection (09/23/25 10:30) Oxygen By Nasal Cannula (09/23/25 10:22) Stat Ekg For Chest Pain (09/23/25 10:22) Notify Md Of Changes From Base (09/23/25 10:22) 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 For 24 Hours (09/23/25 10:22) Emergency Dysrhythmia Protocol (09/23/25 10:22) Nitroglycerin Sublingual (Ntrostat Subli (09/23/25 10:30) Aspirin Enteric Coated Tablet (Ecotrin E (09/24/25 10:00) Atorvastatin (Lipitor) (09/23/25 22:00) Lisinopril Tablet (Zestril Tablet) (09/24/25 10:00) Covid19 Antigen Linda (09/23/25 ) Rapid Influenza A&B (09/23/25 10:22) Echo 2d Mode Cardiac Dop (09/23/25 10:22) Complete Blood Count (09/24/25 04:00) Basic Metabolic Panel (09/24/25 04:00) Hepatic Panel (09/23/25 10:22) Vital Signs Date Time Temp Pulse Resp B/P (MAP) Pulse Ox O2 Delivery O2 Flow Rate FiO2 09/23/25 09:37 98.0 53 17 119/85 (96) 99 98.0 09/23/25 08:49 48 09/23/25 08:12 Room Air* 0 21 09/23/25 07:44 59 09/23/25 07:39 114/77 09/23/25 07:30 60 16 114/77 (89) 99 09/23/25 05:49 61 09/23/25 05:39 97.8 65 18 138/90 98 97.8 Laboratory Tests Test 09/23/25 05:54 09/23/25 07:30 White Blood Count 6.6 10^3/uL (4.4-10.8) 6.3 10^3/uL (4.4-10.8) Medications Medications Dose Ordered Sig/Brigitte Route Start Time Stop Time Status Last Admin Dose Admin Aspirin 162 mg ONCE ONCE PO 09/23/25 07:30 09/23/25 07:31 DC 09/23/25 07:39 162 MG Nitroglycerin 0.4 mg ONCE ONCE SL 09/23/25 07:30 09/23/25 07:31 DC 09/23/25 07:39 0.4 MG Assessment/Plan Assessment/Plan Acute chest pain, rule out ACS Symptomatic Sinus bradycardia H/o hypertensive heart disease H/o dyslipidemia ?Obstructive sleep apnea GERD - initial EKG sinus rhythm without any ST or T-wave abnormalities - chest x-ray showed no acute cardiothoracic abnormalities - continued on lisinopril 20, atorvastatin 40, aspirin 81 - cardiology consult, given was significant family medical history, symptomatic sinus bradycardia - echocardiogram pending - Protonix daily DVT prophylaxis: Enoxaparin Goals of care discussed with the patient for over 18 minutes. Full code Time spent: 33 minutes Plan discussed with Dr. Lopez Plan discussed with: Patient My Orders Orders - MANUEL CHURCH Procedure Category Date Status Time Admit ADMIT 09/23/25 Transmitted 10:22 Morphine Sulfate PHA 09/23/25 Logged Injection 10:30 Oxygen By Nasal RT 09/23/25 Transmitted Cannula 10:22 Stat Ekg For Chest [facility] 09/23/25 In Process Pain 10:22 Notify Md Of Changes [facility] 09/23/25 In Process From Base 10:22 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 For [facility] 09/23/25 In Process 24 Hours 10:22 Emergency Dysrhythmia [facility] 09/23/25 In Process Protocol 10:22 Nitroglycerin PHA 09/23/25 Logged Sublingual (Ntrostat 10:30 Aspirin Enteric PHA 09/24/25 Logged Coated Tablet 10:00 Atorvastatin (Lipitor) PHA 09/23/25 Logged 22:00 Lisinopril Tablet PHA 09/24/25 Logged (Zestril Tablet) 10:00 Covid19 Antigen Linda LAB 09/23/25 Logged Rapid Influenza A&B LAB 09/23/25 Logged 10:22 Echo 2d Mode Cardiac US 09/23/25 Logged DOP 10:22 Complete Blood Count LAB 09/24/25 Verified 04:00 Basic Metabolic Panel LAB 09/24/25 Verified 04:00 Hepatic Panel LAB 09/23/25 Logged 10:22 Date of Service: Sep 23, 2025 Billing Provider: SHANELLE LOPEZ MD Common Visit Codes: [id number] INP/OBS CARE (HIGH) Secondary Visit Codes: [id number] CARE PLAN 30 MINUTES MANUEL CHURCH RESIDENT Sep 23, 2025 10:59
[2025-09-23 11:03] LABS: Albumin 4.5 g/dL (3.2-4.8); Total Protein 7.8 g/dL (5.7-8.2)
[2025-09-23 11:07] LABS: Alanine Aminotransferase 59.0 U/L (7-40); Alkaline Phosphatase 138.0 U/L (46-116); Bilirubin, Direct 0.5 mg/dL (<0.3); Bilirubin, Total 1.6 mg/dL (0.2-1.0)
[2025-09-23 11:28] LABS: COVID19 ANTIGEN SOFIA FIA NEGATIVE (NEGATIVE)
[2025-09-23] MEDS: PANTOPRAZOLE 40 MG TAB PO ONE (11:58)
[2025-09-23] MEDS: ENOXAPARIN SOD 40 MG/0.4 ML SYRINGE SC ONE (11:59)
[2025-09-24] VITALS (8 sets, daily range): BP systolic 91–115; BP diastolic 55–79; PULSE 47–67; RESP 16–21; TEMP 97.3–98.3; O2SAT 94–97
[2025-09-24] MEDS ORDERED: ATORVASTATIN 20 MG TAB ONE (00:41)
[2025-09-24] MEDS: ATORVASTATIN 20 MG TAB PO SCH (00:43)
[2025-09-24] MEDS ORDERED: HYDROcodone-ACET 5/325MG TAB ONE ×2 (00:49→00:52)
[2025-09-24] MEDS: HYDROcodone-ACET 5/325MG TAB PO PRN (00:52)
[2025-09-24] MEDS ORDERED: SUCR1TAB PO (01:06)
[2025-09-24] MEDS ORDERED: CHOL20007 PO (01:06)
[2025-09-24 05:43] LABS: Hematocrit 43.9 % (41.0-53.0); Hemoglobin 15.4 g/dL (13.5-17.5); Mean Corpuscular Hemoglobin 30.6 pg (28.0-32.0); Mean Corpuscular Volume 87.4 fL (80.0-100.0); Nucleated Red Blood Cells % 0.3 %
[2025-09-24] MEDS ORDERED: PANTOPRAZOLE 40 MG TAB PO ONE (05:49)
[2025-09-24] MEDS: PANTOPRAZOLE 40 MG TAB PO SCH (05:50)
[2025-09-24 05:55] LABS: Chloride 106 mmol/L (98-107); Potassium 4.8 mmol/L (3.5-5.1); Sodium 143 mmol/L (136-145)
[2025-09-24 05:56] LABS: Anion Gap 8 (5-15); Calcium 9.4 mg/dL (8.7-10.4); Carbon Dioxide 29 mmol/L (20-31)
[2025-09-24 06:01] LABS: BUN/Creatinine Ratio 16.1 (10.0-20.0); Blood Urea Nitrogen 15 mg/dL (9-23); Glucose 103 mg/dL (74-106)
[2025-09-24 10:06] LABS: Hepatitis B Surface Antigen Negative (Negative)
--- NOTE | 2025-09-24 10:13 | DVHINCON2 ---
Date Seen: Sep 24, 2025 Referring Physician MD Parish Reason for Consultation Chest pain History of Present Illness This is a pleasant Thai-speaking mostly 55-year-old man who presented to the emergency room with a chief complaint of chest pain for three weeks. Describes his chest pain as left-sided, intermittent, sharp/stabbing in nature, worse with inspiration, and non provoked. Denies SOB, palpitations, diaphoresis, dizziness, or syncopal events. The patient also reports a systolic blood pressure up to the 160s mmHg. States he is compliant with his antihypertensive therapy at home including lisinopril 40 mg p.o. q.d. and amlodipine 5 mg p.o. BID. Significant medical history includes hypertension, dyslipidemia, prediabetes, GERD, and obesity. Past Medical History Past medical history reviewed. No other significant than mentioned above. Past Surgical History Hernia repair Family History: Patient reports no known family medical history. Family History Significant for cardiovascular disease. Mother undergoing a double vessel CABG in her 70s. Maternal uncle from a massive myocardial infarction in his 50s. Social History Denies the use of illicit drugs, alcohol, or tobacco use. Allergies: Coded Allergies: NO KNOWN ALLERGIES (Unverified , 01/29/23) Home Meds Active Scripts Hydroxyzine Hcl (Hydroxyzine Hcl) 25 Mg Tab, 1 TAB PO TID, #20 TAB Prov:ALISHA SCHAEFER PAC 08/20/24 Diphenhydramine Hcl (Benadryl Allergy) 25 Mg Cap, 1 CAP PO Q8HP PRN, #20 CAP 0 Refills Prov:ALISHA SCHAEFER PAC 08/20/24 Loratadine (Claritin) 10 Mg Tab, 1 TAB PO DAILY, #30 TAB 0 Refills Prov:ALISHA SCHAEFER PAC 08/20/24 Aspirin (Aspirin Low Dose) 81 Mg Tab, 81 MG PO DAILY for 90 Days, #90 TAB Prov:WILMER MONTIEL MD 07/22/24 Reported Medications Cholecalciferol (VITAMIN D3) 2,000 Unit Tab, 1 TAB PO DAILY, #30 TAB 5 Refills 09/24/25 Sucralfate (Sucralfate) 1 Gm Tab, 1 TAB PO QID 09/24/25 Fluticasone Propionate (Fluticasone Propionate Hf) 220 Mcg/Act Aer, 2 PUFF IN BID, AER 07/21/24 Famotidine (Famotidine) 40 Mg Tab, 40 MG PO BIDAC, TAB 07/21/24 Omeprazole (Omeprazole Dr) 20 Mg Cap, 20 MG PO DAILY, CAP 07/21/24 Albuterol Sulfate (Albuterol Sulfate Hfa) 108 Mcg/Act Aer, 108 MCG IN Q6HP PRN for SHORTNESS OF BREATH, AER 07/21/24 Amlodipine Besylate (Amlodipine Besylate) 5 Mg Tab, 1 TAB PO QAM 07/20/24 Atorvastatin Calcium (ATORVASTATIN CALCIUM) 40 Mg Tab, 1 TAB PO DAILY, #30 TAB 5 Refills 01/29/23 Lisinopril (Lisinopril) 20 Mg Tab, 20 MG PO BID for 30 Days, MG 01/29/23 Home Meds Home medications reviewed. Current Medications Current Medications Medications (Trade) Dose Ordered Sig/Brigitte Route PRN Reason Start Time Stop Time Status Last Admin Morphine Sulfate 2 mg Q30M PRN IV FOR CHEST PAIN 09/23/25 10:30 Nitroglycerin (Ntrostat Sublingual) 0.4 mg Q5MINP PRN SL FOR CHEST PAIN 09/23/25 10:30 Aspirin (Ecotrin Enteric Coated Tablet) 81 mg DAILY PO 09/24/25 10:00 Atorvastatin Calcium (Lipitor) 40 mg HS PO 09/23/25 22:00 09/24/25 00:43 Lisinopril (Zestril Tablet) 20 mg DAILY PO 09/24/25 10:00 Pantoprazole Sodium (Protonix Tablet) 40 mg DAILY@0600 PO 09/24/25 06:00 09/24/25 05:50 Acetaminophen (Tylenol Tablet) 650 mg Q6HP PRN PO PAIN SCALE 1-3 OR TEMP>100.4 09/23/25 11:15 Acetaminophen/ Hydrocodone Bitart ([place] 5/325MG Tab) 1 tab Q6HPRN PRN PO MODERATE PAIN (4-6 PAIN SCALE) 09/23/25 11:15 09/24/25 00:52 Enoxaparin Sodium (Lovenox) 40 mg DAILY SC 09/24/25 10:00 Review of Systems Constitutional: No symptom reported Ears, Nose, & Throat: No symptom reported Eyes: No symptom reported Neurological: No symptoms reported Pulmonary/Respiratory: No symptom reported Cardiovascular: No symptom reported Gastrointestinal: No symptom reported Genitourinary: No symptom reported Musculoskeletal: Noncardiac chest pain Skin: No symptom reported Psychiatric: No symptom reported Endocrine: No symptom reported Hemotologic/Lymphatic: No symptom reported Vital Signs Vital Signs Date Time Temp Pulse Resp B/P (MAP) Pulse Ox O2 Delivery O2 Flow Rate FiO2 09/24/25 04:24 98.3 60 16 102/65 (77) 97 98.3 09/24/25 00:12 Room Air* 0 21 Physical Exam General Appearance: Cooperative. Well developed. Obese. In no acute distress Head Exam: Normal inspection Neck Exam: Normal inspection. Non-tender. Normal alignment Pulmonary/Respiratory: Chest non-tender. Clear bilateral breath sounds Cardiovascular/Chest: Regular rate and rhythm. S1, S2. Sinus bradycardia with intermittent first-degree AV block. No murmurs. No JVD. Peripheral Pulses: 2+ Radial (R). 2+ Radial (L). 2+ Pedal (R). 2+ Pedal (L) Abdominal Exam: Normal bowel sounds. Soft. Ankle Exam: Negative ankle edema Lower extremities: Negative lower extremity edema Neuro/Mental Status: A&O x4. Coherent Thoughts/Psych: Normal thought pattern. Appropriate mood and affect. Good judgement and insight Appearance: In no acute distress Skin Exam: Normal inspection. Normal color. Warm. Dry Labs/Diagnostic Data Labs Test 09/24/25 04:57 09/23/25 10:41 09/23/25 08:03 09/23/25 07:30 Range/Units White Blood Count 5.6 4.4-10.8 10^3/uL Red Blood Count 5.02 4.5-5.90 10^6/uL Hemoglobin 15.4 13.5-17.5 g/dL Hematocrit 43.9 41.0-53.0 % Mean Corpuscular Volume 87.4 80.0-100.0 fL Mean Corpuscular Hemoglobin 30.6 28.0-32.0 pg Mean Corpuscular Hemoglobin Concent 35.0 32.0-36.0 g/dL Red Cell Distribution Width 13.8 11.8-14.3 % Platelet Count 222 140-450 10^3/uL Mean Platelet Volume 7.3 6.9-10.8 fL Neutrophils (%) (Auto) 53.3 37.0-80.0 % Lymphocytes (%) (Auto) 33.1 10.0-50.0 % Monocytes (%) (Auto) 12.3 H 0.0-12.0 % Eosinophils (%) (Auto) 1.0 0.0-7.0 % Basophils (%) (Auto) 0.3 0.0-2.0 % Neutrophils # (Auto) 3.0 1.6-8.6 10 ^3/uL Lymphocytes # (Auto) 1.8 0.4-5.4 10 ^3/uL Monocytes # (Auto) 0.7 0-1.3 10 ^3/uL Eosinophils # (Auto) 0.1 0-0.8 10 ^3/uL Basophils # (Auto) 0 0-0.2 10 ^3/uL Nucleated Red Blood Cells 0.3 % Sodium Level 143 136-145 mmol/L Potassium Level 4.8 3.5-5.1 mmol/L Chloride Level 106 98-107 mmol/L Carbon Dioxide Level 29 20-31 mmol/L Anion Gap 8 5-15 Blood Urea Nitrogen 15 9-23 mg/dL Creatinine 0.93 0.700-1.30 mg/dL Glomerular Filtration Rate Calc 98 >90 mL/min BUN/Creatinine Ratio 16.1 10.0-20.0 Serum Glucose 103 74-106 mg/dL Calcium Level 9.4 8.7-10.4 mg/dL Hepatitis B Surface Antigen Negative Negative Influenza Type A Antigen Negative Negative Influenza Type B Antigen Negative Negative SARS-CoV-2 Antigen (Rapid) Negative NEGATIVE Troponin I High Sensitivity < 3 L </=54 ng/L Total Bilirubin 1.6 H 0.2-1.0 mg/dL Direct Bilirubin 0.5 H <0.3 mg/dL Aspartate Amino Transferase (AST) 48 H 13-40 U/L Alanine Aminotransferase (ALT) 59 H 7-40 U/L Alkaline Phosphatase 138 H 46-116 U/L Total Protein 7.8 5.7-8.2 g/dL Albumin 4.5 3.2-4.8 g/dL Assessment Non-cardiac chest pain, pleuritic in nature Asymptomatic sinus bradycardia with intermittent first-degree AV block Hypertensive urgency Dyslipidemia Pre-diabetes Obesity * Transthoracic echocardiogram (07/2024) LVEF 55% with normal diastolic function (see full dictated report) * Coronary angiogram with cardiac catheterization (07/2024) no significant atherosclerotic plaquing, only sluggish flow involving all three coronary arteries were noted (see full dictated report) * Twelve-lead electrocardiograms x4 indicated sinus bradycardia rhythm with an intermittent first-degree atrioventricular block and no evidence of ST-T wave segment changes * Serial troponin levels are negative Plan/Recommendation (Dr. Thomas) The patient presents with noncardiac chest pain which is pleuritic in nature. Rule out acute pulmonary processes such as viral pneumonia. Initiate NSAIDs. Given reported hypertensive urgency prior to admission, the patient can benefit from a blood pressure log and to follow up with PCP. Continue lipid lowering agent. Avoid AV memo blocking agents. There is no further cardiac workup indicated at this time. Kindly call if in need of further recommendations. Thank you for allowing us to participate in this patient's care. This medical document was created using an electronic medical record system with voice recognition software and computerized dictation system. Although this document has been carefully reviewed, there might still be some phonetic and typographical errors. Occasional wrong-word or ``sound-alike substitutions may have occurred due to the inherent limitations of voice recognition software. These areas are purely typographical due to imperfections of the software programs and do not reflect any compromise in the patient's medical care. Please read the chart carefully and recognize, using context, where these substitutions have occurred. Plan discussed with: Patient, Other NYHA Physical activity limitations: NA Date of Service: Sep 24, 2025 Billing Provider: CLAUDIO YAN Cardiology Common Codes: [id number] INP/OBS CARE (High) CLAUDIO YAN Sep 24, 2025 10:13
[2025-09-24 10:29] LABS: Hepatitis C Antibody Negative (Negative)
[2025-09-24] MEDS: ASPirin-EC 81 mg tab PO SCH (11:16)
[2025-09-24] MEDS: LISINOPRIL 20 MG TAB PO SCH (11:17)
[2025-09-24] MEDS: KETOROLAC TROMETH 30 MG/ML 1ML VIAL IV PRN (11:18)
[2025-09-24] MEDS: ENOXAPARIN SOD 40 MG/0.4 ML SYRINGE SC SCH (11:18)
[2025-09-24 13:06] LABS: Urine Protein, UAD Negative (Negative)
[2025-09-24 13:10] LABS: Opiate Scree,Urine Neg (NEGATIVE)
[2025-09-24 13:13] LABS: Amphetamine Screen, Urine Neg (NEGATIVE); Barbiturate Scree,Urine Neg (NEGATIVE); Benzodiazephine Screen, Urine Neg (NEGATIVE); Cannabinoid Screen, Urine Neg (NEGATIVE); Cocaine Screen, Urine Neg (NEGATIVE); Phencyclidine Screen, Urine Neg (NEGATIVE)
--- NOTE | 2025-09-24 13:21 | DVHPNRES ---
Progress Note Date Seen: Sep 24, 2025 Resident Creating Document: CONCHIS THORNE RESIDENT Medical Necessity Reason Pt with a Central, PICC or Fol: No Subjective Review of Systems Israel Howe is a 55-year old male with past medical history of hypertension, hyperlipidemia, GERD, prediabetes who presented to the ED with the chief complaint of chest pain since 3 weeks. The patient described the chest pain as left-sided, sharp, rated as 7/10 in intensity, increased on taking deep breaths, not exacerbated with exertion and improved with pain medication. He denies any shortness of breath or palpitations. The patient also mentions having systolic blood pressure in the 160s at home, even though he is compliant with his antihypertensive medication. The patient states that on his last visit to his PCP, he was told that he has a slow heart rate. Patient complained of a similar chest pain for 2 weeks in July 2024 when he underwent left heart catheterization on 07/21/24 which did not show any significant atherosclerotic plaque, sluggish flow involving all 3 coronary arteries was noted and he was recommended medical therapy with high-dose statin and beta-blockers. Cardiology was consulted and they recommended continuing with the same medication and keeping a blood pressure log at home on discharge, and ruling out pulmonary processes such as viral pneumonia. Past medical history: hypertension, hyperlipidemia, GERD, prediabetes Past surgical history: Left heart catheterization on 07/21/2024 Home medications: Lisinopril 20 mg p.o. b.i.d., amlodipine 5 mg p.o. daily, aspirin 81 mg p.o. daily, atorvastatin 40 mg p.o. daily, sucralfate 1 tablet p.o. q.i.d., famotidine 40 mg p.o. b.i.d. Social & Personal history: Lives at home with family, denies smoking, alcohol, drug use Family history:Mother undergoing a double vessel CABG in her 70s. Maternal uncle from a massive myocardial infarction in his 50s Allergies: No known allergies Patient seen and examined at bedside. Patient is alert and oriented to time, place person and responding to all questions. Eyes: No Pain, No Vision change, No Conjunctivae inflammation, No Eyelid inflammation, No Redness ENT: No Ear pain, No Ear discharge, No Nose pain, No Nose discharge, No Nose congestion, No Mouth pain, No Mouth swelling, No Throat pain, No Throat swelling Cardiovascular: Chest Pain, No Palpitations, No Orthopnea, No Paroxysmal No Dyspnea, No Edema, No Lt Headedness Respiratory: No Cough, No Dry, No Shortness of breath, No SOB with exertion, No Wheezing, No Hemoptysis, No Pleuritic Pain, No Sputum Gastrointestinal: No Nausea, No Vomiting, No Abdominal Pain, No Diarrhea, No Constipation, No Melena, No Hematochezia Genitourinary: No Dysuria, No Frequency, No Incontinence, No Hematuria, No Retention Objective vital signs Vital Sign Date Time Temp Pulse Resp B/P (MAP) Pulse Ox O2 Delivery O2 Flow Rate FiO2 09/24/25 11:17 111/68 09/24/25 09:00 97.6 47 18 95 97.6 09/24/25 08:00 Room Air* 0 21 Total Intake and Output 09/23/25 09/23/25 09/24/25 15:00 23:00 07:00 Intake Total 250 ml Balance 250 ml medications Current Medications Medications Dose Ordered Sig/Brigitte Route Start Time Stop Time Status Last Admin Dose Admin Morphine Sulfate 2 mg Q30M PRN IV 09/23/25 10:30 Nitroglycerin 0.4 mg Q5MINP PRN SL 09/23/25 10:30 Aspirin 81 mg DAILY PO 09/24/25 10:00 09/24/25 11:16 81 MG Atorvastatin Calcium 40 mg HS PO 09/23/25 22:00 09/24/25 00:43 40 MG Lisinopril 20 mg DAILY PO 09/24/25 10:00 09/24/25 11:17 20 MG Pantoprazole Sodium 40 mg DAILY@0600 PO 09/24/25 06:00 09/24/25 05:50 40 MG Acetaminophen 650 mg Q6HP PRN PO 09/23/25 11:15 Enoxaparin Sodium 40 mg DAILY SC 09/24/25 10:00 09/24/25 11:18 40 MG Ketorolac Tromethamine 15 mg Q6HPRN PRN IV 09/24/25 10:15 09/29/25 10:14 09/24/25 11:18 15 MG Examination General Appearance: Cooperative. Well developed. Well nourished. NAD Head Exam: Normal inspection Neck Exam: Normal inspection. Non-tender. Normal alignment Pulmonary/Respiratory: Chest non-tender. Clear bilateral breath sounds, no crackles, no wheezing. Cardiovascular/Chest: Regular rate and rhythm. No murmurs. No JVD., tenderness on palpation of left side of chest, pain increased on deep breathing Peripheral Pulses: 2+ Radial (R). 2+ Radial (L). 2+ Pedal (R). 2+ Pedal (L) Abdominal Exam: Normal bowel sounds. Soft. normal abdomen, no visible veins, Nontender. No hepatospenomegaly. No masses Ankle Exam: Negative ankle edema Lower extremities: Negative lower extremity edema Neuro/Mental Status: A&O x4. Coherent. Thoughts/Psych: Normal thought pattern. Appropriate mood and affect. Good judgement and insight Skin Exam: Normal inspection. Normal color. Warm. Dry laboratory and microbiology Laboratory Tests 09/24/25 04:57 Test 09/24/25 04:57 Range/Units Serum Glucose 103 74-106 mg/dL Labs and/or images reviewed: Labs reviewed by me, Image(s) reviewed by me Problem List/Assessment/Plan Problem List/Assessment/Plan # Acute chest pain, rule out ACS # Asymptomatic Sinus bradycardia # Rule out pericarditis/pericardial effusion # H/o hypertensive heart disease # Questionable Obstructive sleep apnea - initial EKG sinus rhythm without any ST or T-wave abnormalities - chest x-ray showed no acute cardiothoracic abnormalities - continued on lisinopril 20, aspirin 81, amlodipine 5 - cardiology consult- - echocardiogram pending report - Transthoracic echocardiogram (07/2024) LVEF 55% with normal diastolic function - Coronary angiogram with cardiac catheterization (07/2024) no significant atherosclerotic plaquing, only sluggish flow involving all three coronary arteries were noted # GERD - protonix 40mg daily po - carafate 1gm qid # Prediabetes - HbA1c 6 - patient educated on healthy lifestyle modifications and dietary changes # Dyslipidemia - atorvastatin 40 mg hs daily # Obesity - BMI 30.5 - the patient educated on healthy lifestyle modifications and dietary changes to lose weight PUD prophylaxis: Protonix 40 mg b.i.d. DVT prophylaxis: lovenox 40mg sc daily Goals of care: Full code, discussed for >16 minutes Plan discussed with patient Plan discussed with discussed with Dr. Azul Plan discussed with: Patient Date of Service: Sep 24, 2025 Billing Provider: CALEB AZUL MD Common Visit Codes: [id number] INP/OBS CARE(HIGH) CONCHIS THORNE RESIDENT Sep 24, 2025 13:21 CALEB AZUL MD Sep 24, 2025 17:42
--- NOTE | 2025-09-24 15:00 | ECG ---
[facility] Test Date: 2025-09-23 Test Time: 05:49:06 Pat Name: MINDI FIELD Department: EED Room: 0217T A Gender: M Clerk Manager: AUDI : 1970 Requested By: EMERGENCY EMERGENCY Order Number: [id number] Reading MD: Jeancarlos Thomas Measurements Intervals [place] Rate: 61 P: 53 MN: 188 QRS: 65 QRSD: 102 T: 57 QT: 430 QTc: 433 Interpretive Statements Sinus rhythm Electronically Signed On 09-26-2025 17:43:57 PST by Jeancarlos Thomas Please click the below link to view image of tracing.
--- NOTE | 2025-09-24 15:26 | ECG ---
[facility] Test Date: 2025-09-24 Test Time: 09:10:22 Pat Name: MINDI FIELD Department: Respiratoy Room: 0217T A Gender: M Law Instructor: SANDRA : 1970 Requested By: CONCHIS THORNE Order Number: [id number] Reading MD: Jeancarlos Thomas Measurements Intervals [place] Rate: 55 P: 54 LA: 206 QRS: 16 QRSD: 98 T: 50 QT: 433 QTc: 415 Interpretive Statements Sinus rhythm Borderline prolonged LA interval Electronically Signed On 09-26-2025 17:37:22 PST by Jeancarlos Thomas Please click the below link to view image of tracing.
--- NOTE | 2025-09-24 15:33 | DVHINCON2 ---
Date Seen: Sep 24, 2025 Referring Physician MD Parish Reason for Consultation Chest pain History of Present Illness This is a pleasant mostly Finnish-speaking 55-year-old male with a PMH of hypertension, dyslipidemia, prediabetes, GERD, and obesity who presented to the ED with complaints of chest pain for three weeks. Describes his chest pain as left-sided, intermittent, sharp/stabbing in nature, worse with inspiration, and non provoked. Denies SOB, palpitations, diaphoresis, dizziness, or syncopal events. The patient also reports a systolic blood pressure up to the 160s mmHg. States he is compliant with his antihypertensive therapy at home including lisinopril 40 mg p.o. q.d. and amlodipine 5 mg p.o. BID. Chest x-ray is clear. Serial troponins are negative. Twelve-lead electrocardiograms x4 indicated sinus bradycardia rhythm with an intermittent first-degree atrioventricular block and no evidence of ST-T wave segment changes. Patient was admitted to the hospital. I am asked to consult on this patient. Past Medical History Past medical history reviewed. No other significant than mentioned above. Past Surgical History Hernia repair Family History: Patient reports no known family medical history. Allergies: Coded Allergies: NO KNOWN ALLERGIES (Unverified , 01/29/23) Home Meds Active Scripts Hydroxyzine Hcl (Hydroxyzine Hcl) 25 Mg Tab, 1 TAB PO TID, #20 TAB Prov:ALISHA CSHAEFER PAC 08/20/24 Diphenhydramine Hcl (Benadryl Allergy) 25 Mg Cap, 1 CAP PO Q8HP PRN, #20 CAP 0 Refills Prov:ALISHA SCHAEFER PAC 08/20/24 Loratadine (Claritin) 10 Mg Tab, 1 TAB PO DAILY, #30 TAB 0 Refills Prov:ALISHA SCHAEFER PAC 08/20/24 Aspirin (Aspirin Low Dose) 81 Mg Tab, 81 MG PO DAILY for 90 Days, #90 TAB Prov:WILMER MONTIEL MD 07/22/24 Reported Medications Cholecalciferol (VITAMIN D3) 2,000 Unit Tab, 1 TAB PO DAILY, #30 TAB 5 Refills 09/24/25 Sucralfate (Sucralfate) 1 Gm Tab, 1 TAB PO QID 09/24/25 Fluticasone Propionate (Fluticasone Propionate Hf) 220 Mcg/Act Aer, 2 PUFF IN BID, AER 07/21/24 Famotidine (Famotidine) 40 Mg Tab, 40 MG PO BIDAC, TAB 07/21/24 Omeprazole (Omeprazole Dr) 20 Mg Cap, 20 MG PO DAILY, CAP 07/21/24 Albuterol Sulfate (Albuterol Sulfate Hfa) 108 Mcg/Act Aer, 108 MCG IN Q6HP PRN for SHORTNESS OF BREATH, AER 07/21/24 Amlodipine Besylate (Amlodipine Besylate) 5 Mg Tab, 1 TAB PO QAM 07/20/24 Atorvastatin Calcium (ATORVASTATIN CALCIUM) 40 Mg Tab, 1 TAB PO DAILY, #30 TAB 5 Refills 01/29/23 Lisinopril (Lisinopril) 20 Mg Tab, 20 MG PO BID for 30 Days, MG 01/29/23 Current Medications Current Medications Medications (Trade) Dose Ordered Sig/Brigitte Route PRN Reason Start Time Stop Time Status Last Admin Aspirin (Ecotrin Enteric Coated Tablet) 81 mg DAILY PO 09/24/25 10:00 09/24/25 11:16 Atorvastatin Calcium (Lipitor) 40 mg HS PO 09/23/25 22:00 09/24/25 00:43 Lisinopril (Zestril Tablet) 20 mg DAILY PO 09/24/25 10:00 09/24/25 11:17 Pantoprazole Sodium (Protonix Tablet) 40 mg DAILY@0600 PO 09/24/25 06:00 09/24/25 05:50 Enoxaparin Sodium (Lovenox) 40 mg DAILY SC 09/24/25 10:00 09/24/25 11:18 Ketorolac Tromethamine (Toradol Injection) 15 mg Q6HPRN PRN IV MODERATE PAIN (4-6 PAIN SCALE) 09/24/25 10:15 09/29/25 10:14 09/24/25 11:18 Review of Systems Constitutional: No symptom reported Ears, Nose, & Throat: No symptom reported Eyes: No symptom reported Neurological: No symptoms reported Pulmonary/Respiratory: No symptom reported Cardiovascular: No symptom reported Gastrointestinal: No symptom reported Genitourinary: No symptom reported Musculoskeletal: Noncardiac chest pain Skin: No symptom reported Psychiatric: No symptom reported Endocrine: No symptom reported Hemotologic/Lymphatic: No symptom reported Vital Signs Vital Signs Date Time Temp Pulse Resp B/P (MAP) Pulse Ox O2 Delivery O2 Flow Rate FiO2 09/24/25 13:00 97.5 57 17 106/72 (83) 96 97.5 09/24/25 08:00 Room Air* 0 21 Physical Exam GENERAL: Alert and oriented x 3. No acute distress. Obese. EYES: PERRL, EOMI. Anicteric. HENT: Moist mucous membranes. LUNGS: Clear to auscultation bilaterally. CARDIOVASCULAR: Regular rate and rhythm. ABDOMEN: Soft, non-tender and non-distended. EXTREMITIES: No edema. NEUROLOGIC: No focal neurological deficits. SKIN: Warm, dry. Labs/Diagnostic Data Labs Test 09/24/25 12:00 09/24/25 04:57 09/23/25 10:41 09/23/25 08:03 Range/Units Urine Color Light-yellow Yellow Urine Clarity Clear Clear Urine pH 6.5 5.0-9.0 Urine Specific [place] 1.013 1.001-1.035 Urine Protein Negative Negative Urine Ketones Negative Negative Urine Blood Negative Negative /uL Urine Nitrite Negative Negative Urine Bilirubin Negative Negative Urine Urobilinogen Normal Negative mg/dL Urine Leukocyte Esterase Negative Negative /uL Urine RBC <1 0 - 3 /hpf Urine Microscopic WBC 1 0-3 /HPF Urine Squamous Epithelial Cells None seen <5 /hpf Urine Bacteria None seen None Seen /hpf Urine Glucose Normal Normal mg/dL Urine Opiates Screen Neg NEGATIVE Urine Fentanyl Screen Neg NEGATIVE Urine Barbiturates Screen Neg NEGATIVE Urine Phencyclidine Screen Neg NEGATIVE Urine Amphetamines Screen Neg NEGATIVE Urine Benzodiazepines Screen Neg NEGATIVE Urine Cocaine Screen Neg NEGATIVE Urine Cannabinoids Screen Neg NEGATIVE White Blood Count 5.6 4.4-10.8 10^3/uL Red Blood Count 5.02 4.5-5.90 10^6/uL Hemoglobin 15.4 13.5-17.5 g/dL Hematocrit 43.9 41.0-53.0 % Mean Corpuscular Volume 87.4 80.0-100.0 fL Mean Corpuscular Hemoglobin 30.6 28.0-32.0 pg Mean Corpuscular Hemoglobin Concent 35.0 32.0-36.0 g/dL Red Cell Distribution Width 13.8 11.8-14.3 % Platelet Count 222 140-450 10^3/uL Mean Platelet Volume 7.3 6.9-10.8 fL Neutrophils (%) (Auto) 53.3 37.0-80.0 % Lymphocytes (%) (Auto) 33.1 10.0-50.0 % Monocytes (%) (Auto) 12.3 H 0.0-12.0 % Eosinophils (%) (Auto) 1.0 0.0-7.0 % Basophils (%) (Auto) 0.3 0.0-2.0 % Neutrophils # (Auto) 3.0 1.6-8.6 10 ^3/uL Lymphocytes # (Auto) 1.8 0.4-5.4 10 ^3/uL Monocytes # (Auto) 0.7 0-1.3 10 ^3/uL Eosinophils # (Auto) 0.1 0-0.8 10 ^3/uL Basophils # (Auto) 0 0-0.2 10 ^3/uL Nucleated Red Blood Cells 0.3 % Sodium Level 143 136-145 mmol/L Potassium Level 4.8 3.5-5.1 mmol/L Chloride Level 106 98-107 mmol/L Carbon Dioxide Level 29 20-31 mmol/L Anion Gap 8 5-15 Blood Urea Nitrogen 15 9-23 mg/dL Creatinine 0.93 0.700-1.30 mg/dL Glomerular Filtration Rate Calc 98 >90 mL/min BUN/Creatinine Ratio 16.1 10.0-20.0 Serum Glucose 103 74-106 mg/dL Calcium Level 9.4 8.7-10.4 mg/dL Hepatitis B Surface Antigen Negative Negative Hepatitis C Antibody Negative Negative Influenza Type A Antigen Negative Negative Influenza Type B Antigen Negative Negative SARS-CoV-2 Antigen (Rapid) Negative NEGATIVE Troponin I High Sensitivity < 3 L </=54 ng/L Test 09/23/25 07:30 Range/Units Total Bilirubin 1.6 H 0.2-1.0 mg/dL Direct Bilirubin 0.5 H <0.3 mg/dL Aspartate Amino Transferase (AST) 48 H 13-40 U/L Alanine Aminotransferase (ALT) 59 H 7-40 U/L Alkaline Phosphatase 138 H 46-116 U/L Total Protein 7.8 5.7-8.2 g/dL Albumin 4.5 3.2-4.8 g/dL Assessment Non-cardiac chest pain, pleuritic in nature. Asymptomatic sinus bradycardia with intermittent first-degree AV block. Hypertensive urgency. Dyslipidemia. Pre-diabetes. Obesity. Plan/Recommendation I agree with your ongoing assessment and care of plan. Patient has been seen by Diane Zaidi NP on my behalf. We have discussed the plan with the patient. The patient presents with noncardiac chest pain which is pleuritic in nature. Rule out acute pulmonary processes such as viral pneumonia. Initiate NSAIDs. Given reported hypertensive urgency prior to admission, the patient can benefit from a blood pressure log and to follow up with PCP. Continue lipid lowering agent. Avoid AV memo blocking agents. Transthoracic echocardiogram (07/2024) LVEF 55% with normal diastolic function (see full dictated report). Coronary angiogram with cardiac catheterization (07/2024) no significant atherosclerotic plaquing, only sluggish flow involving all three coronary arteries were noted (see full dictated report). Twelve-lead electrocardiograms x4 indicated sinus bradycardia rhythm with an intermittent first-degree atrioventricular block and no evidence of ST-T wave segment changes. Serial troponin levels are negative. Additional plan as per the hospital course. Plan discussed with: Patient NYHA Physical activity limitations: NA Date of Service: Sep 24, 2025 Billing Provider: ZULEYKA WALTER MD Cardiology Common Codes: 45474-[id number] INP/OBS CARE (High) Cardiology Consultation Codes: [id number] CONSULT <45MIN ZULEYKA WALTER MD Sep 24, 2025 15:33
[2025-09-24] MEDS: SUCRALFATE 1 GM TAB PO SCH (18:14)
[2025-09-24] MEDS: ACETAMINOPHEN 325 MG TAB PO PRN (18:15)
[2025-09-24] MEDS: ACETAMINOPHEN 325 MG TAB PO ONE (18:16)
--- NOTE | 2025-09-24 23:42 | DVHSR ---
APPROVED REPORT EXAM: Two-dimensional and M-mode echocardiogram with Doppler and color Doppler. Blood Pressure: 102/65 mmHg INDICATION Bradycardia RISK FACTORS Height: 5'7", Weight: 194 DIMENSIONS LVDd 4.3 (3.8-5.7cm) LA (2D) 3.4 (1.9-4.0cm) Aortic Root 3.4 (2.0-3.7cm) LVDs 2.8 (2.5-4.0cm) LA (MM) (1.9-4.0cm) Aortic Cusp Exc 1.9 (1.5-2.0cm) EF (%) 63.0 (55-70%) Rt. Atrium 3.8 (1.9-4.0cm) Asc. Aorta 3.1 cm IVSd 1.0 (0.7-1.1cm) RV (D) 4.4 (1.8-2.4cm) PWd 0.9 (0.7-1.1cm) Mitral Valve Mitral Mitral Stenosis E wave 0.76m/s MV Mean GR. mmHg A wave 0.59m/s MV Peak GR. mmHg E/A ratio 1.3 2D MVA cm2 DECEL Time 229ms PRESS 1/2 Time ms Aortic Valve Aortic Valve Aortic Stenosis V1 0.96m/s AO Mean GR. 4mmHg V2 1.25m/s AO Peak GR. 6mmHg LVOT Diameter 2.1 (1.8-2.4cm) Doppler HORACIO 2.66cm2 Pulmonic Valve V2 0.92m/s Conclusion NORMAL LV EF IS 65% AORTIC SCLEROSIS NORMAL MV,TV AND PV NO EFFUSION NORMAL RV FUNCTION
[2025-09-25 01:00] VITALS: BP 109/70; PULSE 66; RESP 18; TEMP 98.4; O2SAT 98
[2025-09-25 05:00] VITALS: BP 112/75; PULSE 56; RESP 17; TEMP 98.2; O2SAT 97
[2025-09-25] MEDS: PANTOPRAZOLE 40 MG TAB PO ONE (06:11)
[2025-09-25 07:24] LABS: Hematocrit 45.0 % (41.0-53.0); Hemoglobin 15.6 g/dL (13.5-17.5); Mean Corpuscular Hemoglobin 30.3 pg (28.0-32.0); Mean Corpuscular Volume 87.0 fL (80.0-100.0); Nucleated Red Blood Cells % 0.2 %
[2025-09-25 08:00] VITALS: PULSE 55
[2025-09-25 08:33] LABS: Chloride 106 mmol/L (98-107); Potassium 4.0 mmol/L (3.5-5.1); Sodium 142 mmol/L (136-145)
[2025-09-25 08:34] LABS: Anion Gap 8 (5-15); Carbon Dioxide 28 mmol/L (20-31)
[2025-09-25 08:35] LABS: Calcium 9.2 mg/dL (8.7-10.4)
[2025-09-25 08:39] LABS: BUN/Creatinine Ratio 13.9 (10.0-20.0); Blood Urea Nitrogen 15 mg/dL (9-23); Glucose 95 mg/dL (74-106)
[2025-09-25 09:30] VITALS: BP 125/77; PULSE 60; RESP 18; TEMP 97.9; O2SAT 97
[2025-09-25] MEDS: ASPirin-EC 81 mg tab PO ONE (09:43)
[2025-09-25] MEDS: LISINOPRIL 20 MG TAB ONE (09:43)
[2025-09-25] MEDS: ENOXAPARIN SOD 40 MG/0.4 ML SYRINGE SC ONE (09:43)
[2025-09-25 12:36] VITALS: BP 102/71; PULSE 60; RESP 18; TEMP 97.7; O2SAT 94
--- NOTE | 2025-09-25 15:43 | DVHDSRES ---
Discharge Summary Date of Admission Resident Creating Document: CONCHIS THORNE RESIDENT Sep 23, 2025 at 10:22 Date of Discharge: Sep 25, 2025 Admitting Diagnosis Acute chest pain, bradycardia Labs/Diagnostic Data: Laboratory Results Test 09/25/25 05:57 09/24/25 12:00 09/24/25 04:57 09/23/25 10:41 White Blood Count 6.9 10^3/uL (4.4-10.8) Red Blood Count 5.17 10^6/uL (4.5-5.90) Hemoglobin 15.6 g/dL (13.5-17.5) Hematocrit 45.0 % (41.0-53.0) Mean Corpuscular Volume 87.0 fL (80.0-100.0) Mean Corpuscular Hemoglobin 30.3 pg (28.0-32.0) Mean Corpuscular Hemoglobin Concent 34.8 g/dL (32.0-36.0) Red Cell Distribution Width 13.7 % (11.8-14.3) Platelet Count 219 10^3/uL (140-450) Mean Platelet Volume 7.2 fL (6.9-10.8) Neutrophils (%) (Auto) 60.1 % (37.0-80.0) Lymphocytes (%) (Auto) 26.5 % (10.0-50.0) Monocytes (%) (Auto) 12.2 % (0.0-12.0) Eosinophils (%) (Auto) 0.9 % (0.0-7.0) Basophils (%) (Auto) 0.3 % (0.0-2.0) Neutrophils # (Auto) 4.2 10 ^3/uL (1.6-8.6) Lymphocytes # (Auto) 1.8 10 ^3/uL (0.4-5.4) Monocytes # (Auto) 0.8 10 ^3/uL (0-1.3) Eosinophils # (Auto) 0.1 10 ^3/uL (0-0.8) Basophils # (Auto) 0 10 ^3/uL (0-0.2) Nucleated Red Blood Cells 0.2 % Sodium Level 142 mmol/L (136-145) Potassium Level 4.0 mmol/L (3.5-5.1) Chloride Level 106 mmol/L (98-107) Carbon Dioxide Level 28 mmol/L (20-31) Anion Gap 8 (5-15) Blood Urea Nitrogen 15 mg/dL (9-23) Creatinine 1.08 mg/dL (0.700-1.30) Glomerular Filtration Rate Calc 82 mL/min (>90) BUN/Creatinine Ratio 13.9 (10.0-20.0) Serum Glucose 95 mg/dL (74-106) Calcium Level 9.2 mg/dL (8.7-10.4) Urine Color Light-yellow (Yellow) Urine Clarity Clear (Clear) Urine pH 6.5 (5.0-9.0) Urine Specific [place] 1.013 (1.001-1.035) Urine Protein Negative (Negative) Urine Ketones Negative (Negative) Urine Blood Negative /uL (Negative) Urine Nitrite Negative (Negative) Urine Bilirubin Negative (Negative) Urine Urobilinogen Normal mg/dL (Negative) Urine Leukocyte Esterase Negative /uL (Negative) Urine RBC <1 /hpf (0 - 3) Urine Microscopic WBC 1 /HPF (0-3) Urine Squamous Epithelial Cells None seen /hpf (<5) Urine Bacteria None seen /hpf (None Seen) Urine Glucose Normal mg/dL (Normal) Urine Opiates Screen Neg (NEGATIVE) Urine Fentanyl Screen Neg (NEGATIVE) Urine Barbiturates Screen Neg (NEGATIVE) Urine Phencyclidine Screen Neg (NEGATIVE) Urine Amphetamines Screen Neg (NEGATIVE) Urine Benzodiazepines Screen Neg (NEGATIVE) Urine Cocaine Screen Neg (NEGATIVE) Urine Cannabinoids Screen Neg (NEGATIVE) Hepatitis B Surface Antigen Negative (Negative) Hepatitis C Antibody Negative (Negative) Influenza Type A Antigen Negative (Negative) Influenza Type B Antigen Negative (Negative) SARS-CoV-2 Antigen (Rapid) Negative (NEGATIVE) Test 09/23/25 08:03 09/23/25 07:30 Troponin I High Sensitivity < 3 ng/L (</=54) Total Bilirubin 1.6 mg/dL (0.2-1.0) Direct Bilirubin 0.5 mg/dL (<0.3) Aspartate Amino Transferase (AST) 48 U/L (13-40) Alanine Aminotransferase (ALT) 59 U/L (7-40) Alkaline Phosphatase 138 U/L (46-116) Total Protein 7.8 g/dL (5.7-8.2) Albumin 4.5 g/dL (3.2-4.8) Other Laboratory Tests 09/25/25 05:57 Brief Hx & Hospital Course: Israel Howe is a 55-year old male with past medical history of hypertension, hyperlipidemia, GERD, prediabetes who presented to the ED with the chief complaint of chest pain since 3 weeks. The patient described the chest pain as left-sided, sharp, rated as 7/10 in intensity, increased on taking deep breaths, not exacerbated with exertion and improved with pain medication. He denied any shortness of breath or palpitations. The patient also mentioned having systolic blood pressure in the 160s at home, even though he is compliant with his antihypertensive medication. The patient stated that on his last visit to his PCP, he was told that he has a slow heart rate. Patient complained of a similar chest pain for 2 weeks in July 2024 when he underwent left heart catheterization on 07/21/24 which did not show any significant atherosclerotic plaque, sluggish flow involving all 3 coronary arteries was noted and he was recommended medical therapy with high-dose statin and beta-blockers. Cardiology was consulted and they recommended continuing with the same medication and keeping a blood pressure log at home on discharge, and ruling out pulmonary processes such as viral pneumonia. Echo was done which showed ejection fraction 65%, aortic sclerosis and no effusion. Telemetry was reviewed. Patient mentioned that his pain had reduced. The patient was discharged home in a stable condition with resumption of home medication. All medications and recommendations were thoroughly explained to the patient and he demonstrated understanding of the same. He was recommended to follow-up clinic, with PCP, Cardiology and GI in 1-2 weeks. Past medical history: hypertension, hyperlipidemia, GERD, prediabetes Past surgical history: Left heart catheterization on 07/21/2024 Home medications: Lisinopril 20 mg p.o. b.i.d., amlodipine 5 mg p.o. daily, aspirin 81 mg p.o. daily, atorvastatin 40 mg p.o. daily, sucralfate 1 tablet p.o. q.i.d., famotidine 40 mg p.o. b.i.d. Social & Personal history: Lives at home with family, denies smoking, alcohol, drug use Family history:Mother undergoing a double vessel CABG in her 70s. Maternal uncle from a massive myocardial infarction in his 50s Allergies: No known allergies General Appearance: Cooperative. Well developed. Well nourished. NAD Head Exam: Normal inspection Neck Exam: Normal inspection. Non-tender. Normal alignment Pulmonary/Respiratory: Chest non-tender. Clear bilateral breath sounds, no crackles, no wheezing. Cardiovascular/Chest: Regular rate and rhythm. No murmurs. No JVD.,mild tenderness on palpation of left side of chest, pain increased on deep breathing Peripheral Pulses: 2+ Radial (R). 2+ Radial (L). 2+ Pedal (R). 2+ Pedal (L) Abdominal Exam: Normal bowel sounds. Soft. normal abdomen, no visible veins, Nontender. No hepatospenomegaly. No masses Ankle Exam: Negative ankle edema Lower extremities: Negative lower extremity edema Neuro/Mental Status: A&O x4. Coherent. Thoughts/Psych: Normal thought pattern. Appropriate mood and affect. Good judgement and insight Skin Exam: Normal inspection. Normal color. Warm. Dry Operations or Procedures 1. PROCEDURE(s): CXRP - CHEST PORTABLE REASON: chest pain ORDER NUMBER(s): [id number], ACCESSION NUMBER(s): [id number] CHEST RADIOGRAPH Indication: chest pain Technique: Single frontal view of the chest was obtained Comparison: XY CHEST PORTABLE on DOS: 07/20/24, XY CHEST XRAY 1 VIEW on DOS: 10/26/23 IMPRESSION: Heart appears normal in size. The lungs appear clear without focal airspace opacity, effusion, or pneumothorax 2.PROCEDURE(s): CXR1 - CHEST XRAY 1 VIEW REASON: cp ORDER NUMBER(s): [id number], ACCESSION NUMBER(s): [id number] CHEST RADIOGRAPH Indication: cp Technique: Single frontal view of the chest was obtained COMPARISON: XY CHEST PORTABLE on DOS: 09/23/25, XY CHEST PORTABLE on DOS: 07/20/24, XY CHEST XRAY 1 VIEW on DOS: 10/26/23, XY CHEST TWO VIEWS ROUTINE on DOS: 01/29/23 FINDINGS: Lines and Tubes: None Lungs: Increased interstitial prominence. This may represent pulmonary vascular congestion and/or viral pneumonia. Pleura: No effusion. No pneumothorax. Cardiomediastinal contours: Unremarkable Bones: Unremarkable IMPRESSION: Increased interstitial prominence. This may represent pulmonary vascular congestion and/or viral pneumonia. Condition at Discharge: Fair Final Diagnosis/Problems List Acute chest pain, ruled out ACS Asymptomatic Sinus bradycardia Ruled out pericarditis/pericardial effusion H/o hypertensive heart disease Questionable Obstructive sleep apnea GERD Prediabetes, HbA1c 6 Dyslipidemia Obesity Discharge Disposition: Home Discharge Instruct/Medications Diet: Cardiac 2g Na,low cholest Activity: No Restrictions, As Tolerated Follow Up/Referral: Follow-up in discharge Clinic in 1 week Follow-up with PCP in 1-2 weeks Follow up with Cardiology in 1-2 weeks Follow up with GI in 1-2 weeks Medications: As per EMR Scheduled Amlodipine Besylate (Amlodipine Besylate), 1 TAB PO QAM, (Reported) Aspirin (Aspirin Low Dose), 81 MG PO DAILY Atorvastatin Calcium (Atorvastatin Calcium), 1 TAB PO DAILY, (Reported) Cholecalciferol (Vitamin D3), 1 TAB PO DAILY, (Reported) Famotidine (Famotidine), 40 MG PO BIDAC, (Reported) Fluticasone Propionate (Fluticasone Propionate Hf), 2 PUFF IN BID, (Reported) Hydroxyzine Hcl (Hydroxyzine Hcl), 1 TAB PO TID Lisinopril (Lisinopril), 20 MG PO BID, (Reported) Loratadine (Claritin), 1 TAB PO DAILY Omeprazole (Omeprazole Dr), 20 MG PO DAILY, (Reported) Sucralfate (Sucralfate), 1 TAB PO QID, (Reported) Scheduled PRN Albuterol Sulfate (Albuterol Sulfate Hfa), 108 MCG IN Q6HP PRN for SHORTNESS OF BREATH, (Reported) Diphenhydramine Hcl (Benadryl Allergy), 1 CAP PO Q8HP PRN Discharge Statement: "Patient was advised to return to the ER or call 911 if any headaches, dizziness, shortness of breath, chest pain, abdominal pain, bleeding, fevers, or worsening of medical condition. Patient was counseled about treatment plan, medications, possible side effects, patientverbalized understanding. All questions were answered to the best of my ability. This discharge took greater then 30 minutes in planning, reviewing documentation, counseling the patient, and discussing with other team members." ASSESSMENT ASSESSMENT Assessment acute chest pain, ruled out ACS Date of Service: Sep 25, 2025 Billing Provider: CALEB AZUL MD Common Visit Codes: 52121-XNW/OBS DISCH DAY >30min CONCHIS THORNE RESIDENT Sep 25, 2025 15:43
[2025-09-25 16:30] VITALS: BP 104/69; PULSE 65; RESP 17; TEMP 98.1; O2SAT 98
--- NOTE | 2025-09-26 00:21 | DVHPN2 ---
Progress Note - Dictate Date Seen: Sep 25, 2025 Medical Necessity Reason Pt with a Central, PICC or Fol: No Subjective Patient was seen and evaluated in follow up.No overnight events. Echocardiogram showed an EF of 65%. Patient is cardiac stable for discharge. Telemetry reviewed. vital signs Vital Sign Date Time Temp Pulse Resp B/P (MAP) Pulse Ox O2 Delivery O2 Flow Rate FiO2 09/25/25 16:30 98.1 65 17 104/69 (81) 98 98.1 09/25/25 08:00 Room Air* 0 21 Total Intake and Output 09/24/25 09/24/25 09/25/25 15:00 23:00 07:00 Intake Total 510 ml 200 ml Balance 510 ml 200 ml objective GENERAL: Alert and oriented x 3. No acute distress. Obese. EYES: PERRL, EOMI. Anicteric. HENT: Moist mucous membranes. LUNGS: Clear to auscultation bilaterally. CARDIOVASCULAR: Regular rate and rhythm. ABDOMEN: Soft, non-tender and non-distended. EXTREMITIES: No edema. NEUROLOGIC: No focal neurological deficits. SKIN: Warm, dry. laboratory and microbiology Laboratory Tests 09/25/25 05:57 Test 09/25/25 05:57 Range/Units Serum Glucose 95 74-106 mg/dL Problem List Non-cardiac chest pain, pleuritic in nature. Asymptomatic sinus bradycardia with intermittent first-degree AV block. Hypertensive urgency. Dyslipidemia. Pre-diabetes. Obesity. Assessment/Plan Continued all current supportive medical care. Amlodipine. Aspirin. DVT and GI prophylactics. Lisinopril. Additional plan as per the hospital course. Plan discussed with: Patient ZULEYKA WALTER MD Sep 25, 2025 19:13
== END 2025-09-25 18:15 | disposition home or self-care (01) | DRG 203 ==
LOC: ER 05:37 → OVERFLOW 10:22 → TELE-CENTR 09-24 06:30
PROVIDERS: ADMIT Internal Medicine; ATTEND Internal Medicine
DX: R07.89 Other chest pain (principal); E66.9 Obesity, unspecified; I11.9 Hypertensive heart disease without heart failure; J45.909 Unspecified asthma, uncomplicated; Z20.822 Contact with and (suspected) exposure to COVID-19; G47.33 Obstructive sleep apnea (adult) (pediatric); K21.9 Gastro-esophageal reflux disease without esophagitis; E78.5 Hyperlipidemia, unspecified; I44.0 Atrioventricular block, first degree; R73.03 Prediabetes; Z68.30 Body mass index [BMI] 30.0-30.9, adult; Z82.49 Family history of ischemic heart disease and other diseases of the circulatory system; Z79.899 Other long term (current) drug therapy
CPT/HCPCS: 36415; 71045; 80048; 80076; 80307; 81001; 84484; 85025; 86803; 87340; 87426; 87804; 93005; 93306; 99291; G0378; J1885